=== PATIENT | male | born 1970 | race Caucasian/White ===

== ENCOUNTER 2019-12-21 13:13 | Outpatient (REF) | payer OTHER, SELFPAY | END 2019-12-21 13:14 | disposition home or self-care (01) | LOC: HO.HMGCLDS 13:13 | PROVIDERS: PCP Internal Medicine; Visit Provider Internal Medicine | DX: Z20.828 Contact with and (suspected) exposure to other viral communicable diseases (principal) | CPT/HCPCS: C9803; U0003 ==

== ENCOUNTER 2020-08-02 16:08 | Outpatient (REF) | payer OTHER, SELFPAY ==
--- NOTE | ~2020-08-02 | XR_ITS ---
EXAMINATION: XR FINGER, RIGHT CLINICAL INFORMATION: Low infection skin and subcutaneous tissue. COMPARISON: None TECHNIQUE: 3 views of the right second digit. FINDINGS: The bones and soft tissues are normal. No fracture. Alignment is anatomic. Joint spaces are maintained. XR/XR finger RT min 2V IMPRESSION: Normal second finger x-ray exam.
== END 2020-08-02 16:09 | disposition home or self-care (01) ==
LOC: HO.HMGCX 16:08
PROVIDERS: PCP Internal Medicine; Visit Provider Nurse Practitioner Family
DX: L08.9 Local infection of the skin and subcutaneous tissue, unspecified (principal)
CPT/HCPCS: 73140

== ENCOUNTER 2020-08-17 08:11 | Outpatient (REF) | payer OTHER, SELFPAY ==
[2020-08-17 08:59] LABS: MANUAL DIFF FLAG NO
[2020-08-17 09:10] LABS: Basophils Percent Auto 0.4 % (0-2); Eosinophils Absolute Auto 0.3 X10*3/uL (0.0-0.4); Eosinophils Percent Auto 4.5 % (0-4); Hematocrit 44.4 % (42-52); Hemoglobin 14.7 g/dl (14.0-18.0); Imm Gran Abs Auto 0.03 X10*3/uL (0.00-0.03); Imm Gran Pct Auto 0.4 % (0.0-0.4); Lymphocytes Percent Auto 29.8 % (20-40); Mean Corpuscular HGB Conc 33.1 g/dl (31.0-36.0); Mean Corpuscular Hemoglobin 29.9 pg (27.0-33.0); Mean Corpuscular Volume 90.2 fL (80-98); Mean Platelet Volume 9.8 fL (9.4-12.4); Monocytes Absolute Auto 0.7 X10*3/uL (0.1-1.2); Monocytes Percent Auto 9.7 % (2-11); Neutrophils Absolute Auto 3.7 X10*3/uL (2.0-8.3); Neutrophils Percent Auto 55.2 % (45-73); Platelet Count 273 X10*3/uL (160-400); Red Blood Count 4.92 X10*6/uL (4.60-5.80); Red Cell Distribution Width 13.1 % (11.0-16.0); White Blood Count 6.7 X10*3/uL (4.8-10.8)
[2020-08-17 09:33] LABS: Alanine Aminotransferase 27 U/L (0-40); Albumin Level 4.4 g/dL (3.5-5.0); Alkaline Phosphatase 52 U/L (39-117); Anion Gap 15 (12-20); Aspartate Amino Transferase 14 U/L (5-37); Bilirubin Total 0.4 mg/dL (0.0-1.0); Blood Urea Nitrogen 12 mg/dL (9-16); Calcium 9.4 mg/dL (8.4-10.2); Carbon Dioxide 21 mmol/L (22-29); Chloride 107 mmol/L (96-108); Cholesterol 173 mg/dL; Estimated Glomerular Filt Rate > 60; Glucose Fasting 98 mg/dL (60-99); HDL Cholesterol 54 mg/dL; LDL Cholesterol Calculated 102 mg/dl; Potassium 4.9 mmol/L (3.3-5.1); Sodium 138 mmol/L (135-145); Total Protein 6.8 g/dL (6.5-8.0); Triglycerides 86 mg/dL
== END 2020-08-17 08:12 | disposition home or self-care (01) ==
LOC: HO.LAB 08:11
PROVIDERS: PCP Internal Medicine; Visit Provider Internal Medicine
DX: Z00.00 Encounter for general adult medical examination without abnormal findings (principal); E11.9 Type 2 diabetes mellitus without complications
CPT/HCPCS: 36415; 80053; 80061; 85025

== ENCOUNTER 2020-10-24 09:36 | Outpatient (REF) | payer OTHER, SELFPAY ==
--- NOTE | 2020-10-24 09:39 | EMG_ITS ---
This is a 50-year-old man, who plays a guitar, has a 20-year history of left more than right upper extremity pain, numbness, and tingling in the hand. PHYSICAL EXAMINATION: On examination, he is alert and oriented with normal intellectual functions. Cranial nerves II through XII are normal. Muscle tone and strength are normal in all 4 extremities. Deep tendon reflexes symmetrical. No Tinel or Phalen sign. IMPRESSION: Rule out carpal tunnel syndrome. Nerve conduction EMG study: Normal electrodiagnostic study of both upper extremities with no evidence of carpal tunnel syndrome or nerve entrapment or generalized neuropathy. Normal EMG of C5-T1 innervated muscles. MD BELLA Green/HORTENSIA / [id number]
== END 2020-10-24 09:37 | disposition home or self-care (01) ==
LOC: HO.NEURO 09:36
PROVIDERS: Visit Provider Internal Medicine
DX: G56.00 Carpal tunnel syndrome, unspecified upper limb (principal)
CPT/HCPCS: 95885; 95913

== ENCOUNTER → 2021-03-28 09:00 | Outpatient (BNVA) | payer OTHER, SELFPAY | PROVIDERS: PCP Internal Medicine; Referring Provider Internal Medicine; Visit Provider Physician Assistant | DX: Z12.11 Encounter for screening for malignant neoplasm of colon (principal) | CPT/HCPCS: 99202 ==

== ENCOUNTER 2022-03-05 12:37 | Outpatient (REF) | payer OTHER, SELFPAY | END 2022-03-05 12:38 | disposition home or self-care (01) | LOC: HO.XRAY 12:37 | PROVIDERS: PCP Internal Medicine; Visit Provider Internal Medicine | DX: Z13.89 Encounter for screening for other disorder (principal) ==

== ENCOUNTER 2022-04-02 11:22 | Outpatient (REF) | payer OTHER, SELFPAY ==
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
== END 2022-04-02 11:23 | disposition home or self-care (01) ==
LOC: HO.HMGCX 11:22
PROVIDERS: Visit Provider Nurse Practitioner Family
DX: H11.31 Conjunctival hemorrhage, right eye (principal); S05.91XA Unspecified injury of right eye and orbit, initial encounter
CPT/HCPCS: 70150

== ENCOUNTER → 2022-09-29 08:59 | Outpatient (REF) | payer OTHER, SELFPAY | LOC: HO.SL 08:59 | PROVIDERS: PCP Internal Medicine; Visit Provider Internal Medicine | DX: G47.33 Obstructive sleep apnea (adult) (pediatric) (principal) | CPT/HCPCS: 95806 ==

== ENCOUNTER → 2022-09-29 09:31 | Outpatient (BNV) | payer OTHER, SELFPAY | PROVIDERS: PCP Internal Medicine; Visit Provider Internal Medicine | DX: G47.33 Obstructive sleep apnea (adult) (pediatric) (principal) | CPT/HCPCS: 95806 ==

== ENCOUNTER 2022-10-24 11:28 | Outpatient (AMB) | payer OTHER, SELFPAY ==
[2022-10-24 11:30] VITALS: BP 128/76; PULSE 80; BMI 35.9
--- NOTE | 2022-10-24 11:30 | A.OFFPC_ITS ---
Vital Signs 10/24/22 11:30 Height 5 ft 4 in Weight 209 lb BMI 35.9 BP 128/76 Blood Pressure Location Lt brachial Position Sitting Pulse 80 Pulse Source Pulse Oximeter Oxygen Delivery Method Room Air Intake Visit Reasons: F/u Sleep apnea Street Department Dispatcher: Not Required per policy Accompanied by: Self / Same As Patient Allergies amoxicillin Allergy (Unknown, Verified 10/24/22 11:30) makes his symptoms worse Sulfa (Sulfonamide Antibiotics) Allergy (Unknown, Verified 10/24/22 11:30) symptoms get worse Medication List - Last Reconciled 10/27/22 by Dean Hayden MD bisacodyl (Dulcolax (bisacodyl)) 10 mg (2 x 5 mg) PO ONCE 1 day bupropion HCl (Wellbutrin SR) 150 mg PO BID loratadine (Allergy Relief (loratadine)) 10 mg PO DAILY PRN polyethylene glycol 3350 (Miralax) 238 grams PO ONCE 1 day varenicline (Chantix Continuing Month Box) 1 mg PO BID Tobacco use date assessed: 04/07/22 Dental Screening Dental Screen Date: 10/24/22 Did you have a dental visit in the last 12 months?: Yes Did you have a dental problem in the last 6 months where you did not have access to dental care?: No Was dental information given to patient?: Patient has dentist HPI F/u Sleep apnea HPI Details has ROWENA and needs rx for cpap machine; already had one but needs replacement PFSH Surgical History Hx of colonoscopy History of vasectomy Family History Mother Mental health disorder Substance use disorder Father Mental health disorder Substance use disorder Social History Housing: Apartment Alcohol intake: current Patient Tobacco Use Status: Current everyday Tobacco user Tobacco use type: Cigarette Cigarettes Per Day: 10 e-Cigarette/Vaping Use: Never Used Second Hand Smoke Exposure: No service: No Current occupational status: employed Current occupation: [employer] Cognitive needs: No Hearing needs: No Vision needs: Yes Questionnaire PHQ-9 Over the last 2 weeks, how often have you been bothered by any of the following problems? 1. Little interest or pleasure in doing things: not at all 2. Feeling down, depressed, or hopeless: not at all 3. Trouble falling or staying asleep, or sleeping too much: not at all 4. Feeling tired or having little energy: not at all 5. Poor appetite or overeating: not at all 6. Feeling bad about yourself - or that you are a failure or have let yourself or your family down: not at all 7. Trouble concentrating on things, such as reading the newspaper or watching television: not at all 8. Moving or speaking so slowly that other people could have noticed. Or the opposite - being so fidgety or restless that you have been moving around a lot more than usual: not at all 9. Thoughts that you would be better off or of hurting yourself in some way: not at all Total score: 0 Depression Screening Interpretation: Negative 73154 - PHQ-9 Billing: Yes Source: Developed by Drs. Thuan Weller, Nancy Ellison, Constantin Waggoner and colleagues, with an educational ngozi from [employer]. Thrive Questionnaire Date Thrive assessed: 04/07/22 AUDIT C Alcohol Use Questionnaire (AUDIT-C) 1. How often do you have a drink containing alcohol?: 2-4 times a month 2. How many drinks containing alcohol do you have on a typical day when you are drinking?: 3 or 4 Total Score: 3 Score Reviewed/Action Taken: Yes DEANNA-7 AMB Questionnaire DEANNA-7 Date DEANNA - 7 assessed: 04/07/22 Source: Developed by Drs. Thuan Weller, Nancy Ellison, Constantin Waggoner and colleagues, with an educational ngozi from [employer]. Review of Systems Const Denies chills, Denies headache(s) and Denies weight loss ENT Denies headache(s) Card Denies chest pain, Denies syncope, Denies irregular heart rhythm and Denies dyspnea Resp Denies chest congestion, Denies cough and Denies dyspnea GI Denies abdominal pain, Denies change in stool character, Denies nausea and Denies vomiting Musc Denies deformity and Denies joint swelling Neuro Denies syncope and Denies headache(s) Physical exam (Primary Care) Vital Signs: Last Vital Signs Pulse 80 10/24/22 11:30 BP 128/76 10/24/22 11:30 Oxygen Delivery Method Room Air 10/24/22 11:30 BMI result Body Mass Index 35.9 Tobacco/Smoking Status: Tobacco use Status Tobacco use date assessed 04/07/22 10/24/22 11:34 Patient Tobacco Use Status Current everyday Tobacco 10/24/22 11:34 Tobacco use type Cigarette 10/24/22 11:34 e-Cigarette/Vaping Use Never Used 10/24/22 11:34 PHQ-9: PHQ-9 Score PHQ-9: Total score 0 10/24/22 11:34 Depression Screening Interpretation: Negative Thrive Assessment: Date of Thrive Assessment Date Thrive assessed 04/07/22 10/24/22 11:34 Const General: cooperative, comfortable, no acute distress and alert Neck Neck: Yes no lymphadenopathy Thyroid: Thyroid normal Resp Effort & Inspection: normal respiratory effort Auscultation: clear to auscultation bilaterally Percussion: percussion normal Cardio Jugular venous distension: no JVD Palpation: normal PMI Rate: regular rate Rhythm: regular rhythm Heart sounds: S1 normal heart sound present and S2 normal heart sound present GI Inspection: Yes normal to inspection Palpation (GI): No hepatosplenomegaly present Skin General skin exam: no rashes or lesions noted Extrem General: Yes no clubbing, cyanosis or edema Assessment and Plan Assessment & Plan (1) Obstructive sleep apnea: Code(s): G47.33 - Obstructive sleep apnea (adult) (pediatric) Plan: cont rx Orders: Orders Comprehensive [place]. Panel Fast 10/24/22 N28.9 - Disorder of kidney and ureter, unspecified Lipid Panel 10/24/22 E78.5 - Hyperlipidemia, unspecified Complete Blood Count Auto Diff 10/24/22 D64.9 - Anemia, unspecified Medications: New varenicline (Chantix Continuing Month Box) 1 mg PO BID 60 tabs 0RF Coding Level of Care Code Est Pt Level 3 (97391) Diagnoses Obstructive sleep apnea G47.33
== END 2022-10-24 13:16 | disposition home or self-care (01) ==
PROVIDERS: PCP Internal Medicine; Visit Provider Internal Medicine
DX: G47.33 Obstructive sleep apnea (adult) (pediatric) (principal)
CPT/HCPCS: 99213

== ENCOUNTER 2023-03-13 13:58 | Outpatient (AMB) | payer OTHER, SELFPAY ==
--- NOTE | 2023-03-13 14:00 | AM.OFFWIN_ITS ---
Intake Vital Signs 03/13/23 14:03 Height 5 ft 4 in Weight 98.43 kg BMI 37.2 BP 130/78 Blood Pressure Location Lt brachial Position Sitting Pulse 75 Pulse Source Pulse Oximeter Temp 97.6 F Temp Source Temporal Artery Scan Pulse Oximetry (%) 96 Oxygen Delivery Method Room Air Intake Visit Reasons: EP stitches rmv from 03/07/23 Intake Note: pt is here today for stitches removed from 03/07 Patient Tobacco Use Status: Former Tobacco user Allergies amoxicillin Allergy (Unknown, Verified 03/13/23 14:01) makes his symptoms worse Sulfa (Sulfonamide Antibiotics) Allergy (Unknown, Verified 03/13/23 14:01) symptoms get worse Do you need a note to return to daycare/school/sports/work: No HPI HPI Comments History of Present Illness Details 52-year-old male presents for suture rem oval of sutures on scalp patient had them placed at [facility] on March 07 after he bumped his head on a shelf. No complaints. Not on anti coags. No fevers, chills, numbness, tingling, headache, vision changes, dizziness or weakness. Physical exam with healing laceration to head with [address] Plan suture removal Educated patient on diagnosis and treatment plan, answered all question, patient verbalizes understanding. At this time patient will be discharged home, advised to return with new or worsening symptoms. Educated on worrisome signs and symptoms and when to return. At this time I feel comfortable discharge home. [facility] Surgical History Hx of colonoscopy History of vasectomy Family History Mother Mental health disorder Substance use disorder Father Mental health disorder Substance use disorder Social History Housing: Apartment Alcohol intake: current Patient Tobacco Use Status: Former Tobacco user Tobacco use type: Cigarette Cigarettes Per Day: 10 e-Cigarette/Vaping Use: Never Used Second Hand Smoke Exposure: No service: No Current occupational status: employed Current occupation: [employer] Cognitive needs: No Hearing needs: No Vision needs: Yes Review of Systems Const Details: Constitutional : No Fever, No Chills, Cardiovascular : No Chest Pain, No SOB Respiratory : No Dyspnea Gastrointestinal : No abdominal pain Musculoskeletal : No Joint Swelling Skin : No rash, positive skin laceration Neuro : No Weakness, No Numbness Psych : No SI/HI All systems reviewed & are unremarkable except as noted in HPI and below Physical Exam Vital Signs: vss Appearance: Alert.? Oriented X3.? No acute distress.? Head: Normocephalic, atraumatic, no step-offs or deformities + 3 cm healing laceration to scalp with a running suture in place Eyes: Pupils equal, round and reactive to light.? CVS: ? Pulses normal.? Respiratory: No respiratory distress.? Skin: Skin warm and dry.? Normal skin color.? Normal skin turgor.? Extremities: No lower extremity edema.? No calf ttp. 5/5 strength to bilateral upper and lower extremities Neuro: Oriented X 3.? No motor deficit.? No sensory deficit. CN 2-12 intact Assessment & Plan Assessment & Plan (1) Visit for suture removal: Code(s): Z48.02 - Encounter for removal of sutures Plan Take your medications as prescribed. If you were prescribed antibiotics today, it is important that you take your medication to their entirety, do not skip any doses, do not finish them early. Follow-up with your primary care provider this week. Return to the emergency department with new or worsening symptoms. Such as fevers, chills, chest pain, shortness of breath, nausea, vomiting, dizziness, headache, vision changes, lethargy In case of emergency call 911 Coding Level of Care Code Est Pt Level 3 (81000) Diagnoses Visit for suture removal Z48.02
[2023-03-13 14:03] VITALS: BP 130/78; PULSE 75; TEMP 36.4; O2SAT 96; BMI 37.2
== END 2023-03-13 14:45 | disposition home or self-care (01) ==
PROVIDERS: PCP Internal Medicine; Visit Provider Physician Assistant
DX: Z48.02 Encounter for removal of sutures (principal)
CPT/HCPCS: 15853; 99212

== ENCOUNTER 2023-08-24 08:46 | Outpatient (AMB) | payer OTHER, SELFPAY ==
[2023-08-24 08:49] VITALS: BP 140/80; PULSE 85; BMI 37.9
--- NOTE | 2023-08-24 08:49 | A.OFFPC_ITS ---
Vital Signs 08/24/23 08:49 Height 5 ft 4 in Weight 221 lb BMI 37.9 BP 140/80 H Blood Pressure Location Lt brachial Position Sitting Pulse 85 Pulse Source Pulse Oximeter Oxygen Delivery Method Room Air Intake Visit Reasons: Office visit Logistics Coordinator: Not Required per policy Accompanied by: Self / Same As Patient Allergies amoxicillin Allergy (Unknown, Verified 08/24/23 08:49) makes his symptoms worse Sulfa (Sulfonamide Antibiotics) Allergy (Unknown, Verified 08/24/23 08:49) symptoms get worse Medication List - Last Reconciled 08/24/23 by Dean Hayden MD bisacodyl (Dulcolax (bisacodyl)) 10 mg (2 x 5 mg) PO ONCE 1 day bupropion HCl SR (Wellbutrin SR) 150 mg PO BID CPAP (CPAP Machine/Device) AUTO PAP mode 6-16 setting loratadine (Allergy Relief (loratadine)) 10 mg PO DAILY PRN polyethylene glycol 3350 (Miralax) 238 grams PO ONCE 1 day varenicline (Chantix Continuing Month Box) 1 mg PO BID Tobacco use date assessed: 08/24/23 Dental Screening Dental Screen Date: 08/24/23 Did you have a dental visit in the last 12 months?: Yes Did you have a dental problem in the last 6 months where you did not have access to dental care?: No Was dental information given to patient?: Patient has dentist HPI Office visit HPI Details ROWENA; CPAP rx has and new one printed; has not started rx PFSH Surgical History Hx of colonoscopy History of vasectomy Family History Mother Mental health disorder Substance use disorder Father Mental health disorder Substance use disorder Social History Housing: Apartment Alcohol intake: current Patient Tobacco Use Status: Former Tobacco user Tobacco use type: Cigarette Cigarettes Per Day: 10 e-Cigarette/Vaping Use: Never Used Second Hand Smoke Exposure: No service: No Current occupational status: employed Current occupation: [employer] Cognitive needs: No Hearing needs: No Vision needs: Yes Questionnaire PHQ-9 Over the last 2 weeks, how often have you been bothered by any of the following problems? 1. Little interest or pleasure in doing things: not at all 2. Feeling down, depressed, or hopeless: not at all 3. Trouble falling or staying asleep, or sleeping too much: not at all 4. Feeling tired or having little energy: not at all 5. Poor appetite or overeating: not at all 6. Feeling bad about yourself - or that you are a failure or have let yourself or your family down: not at all 7. Trouble concentrating on things, such as reading the newspaper or watching t elevision: not at all 8. Moving or speaking so slowly that other people could have noticed. Or the opposite - being so fidgety or restless that you have been moving around a lot more than usual: not at all 9. Thoughts that you would be better off or of hurting yourself in some way: not at all Total score: 0 Depression Screening Interpretation: Negative Depression Screening Done: Yes [id number] - PHQ-9 Billing: Yes Source: Developed by Drs. Thuan Weller, Nancy Ellison, Constantin Waggoner and colleagues, with an educational ngozi from [employer]. Thrive Questionnaire Date Thrive assessed: 08/24/23 I am a: Patient What is your living situation today?: I have a steady place to live Within the past 12 months, did the food you bought not last and you didn't have the money to get more?: Never true Within the past 12 months, did you worry whether your food would run out before you got money to buy more?: Never true Do you have trouble paying for medicines?: No Do you have trouble getting transportation to medical appointments?: No Do you have trouble paying your heating and electricity bill?: No Do you have trouble taking care of your child, family member or friend?: No Do you have trouble with day-to-day activities such as bathing, preparing meals, shopping, managing finances, etc.?: No Are you currently unemployed and looking for a job?: No Are you interested in more education?: No Please select the resources that you would like help with: None THRIVE Score: 0 AUDIT C Alcohol Use Questionnaire (AUDIT-C) 1. How often do you have a drink containing alcohol?: 2-4 times a month 2. How many drinks containing alcohol do you have on a typical day when you are drinking?: 3 or 4 Total Score: 3 Score Reviewed/Action Taken: Yes DEANNA-7 AMB Questionnaire DEANNA-7 Date DEANNA - 7 assessed: 08/24/23 Feeling nervous, anxious, or on edge: 0 = Not at all Not being able to stop or control worryin = Not at all Worrying too much about different things: 0 = Not at all Trouble relaxin = Not at all Being so restless that it is hard to sit still: 0 = Not at all Becoming easily annoyed or irritable: 0 = Not at all Feeling afraid as if something awful might happen: 0 = Not at all Total DEANNA-7 score (0-4 normal; 5-9 mild; 10-14 moderate; 15-21 severe): 0 Source: Developed by Drs. Thuan Weller, Nancy Ellison, Constantin Waggoner and colleagues, with an educational ngozi from [employer]. Review of Systems Const Denies chills, Denies headache(s) and Denies weight loss ENT Denies headache(s) Card Denies chest pain, Denies syncope, Denies irregular heart rhythm and Denies dyspnea Resp Denies chest congestion, Denies cough and Denies dyspnea GI Denies abdominal pain, Denies change in stool character, Denies nausea and Denies vomiting Musc Denies deformity and Denies joint swelling Neuro Denies syncope and Denies headache(s) Physical exam (Primary Care) Vital Signs: Last Vital Signs Pulse 85 08/24/23 08:49 BP 140/80 H 08/24/23 08:49 Oxygen Delivery Method Room Air 08/24/23 08:49 BMI result Body Mass Index 37.9 Tobacco/Smoking Status: Tobacco use Status Tobacco use date assessed 08/24/23 08/24/23 08:50 Patient Tobacco Use Status Former Tobacco user 08/24/23 08:50 Tobacco use type Cigarette 08/24/23 08:50 e-Cigarette/Vaping Use Never Used 08/24/23 08:50 PHQ-9: PHQ-9 Score PHQ-9: Total score 0 08/24/23 08:50 Depression Screening Interpretation: Negative Thrive Assessment: Date of Thrive Assessment Date Thrive assessed 07/08/24 07/08/24 08:50 Const General: cooperative, comfortable, no acute distress and alert Neck Neck: Yes no lymphadenopathy Thyroid: Thyroid normal Resp Effort & Inspection: normal respiratory effort Auscultation: clear to auscultation bilaterally Percussion: percussion normal Cardio Jugular venous distension: no JVD Palpation: normal PMI Rate: regular rate Rhythm: regular rhythm Heart sounds: S1 normal heart sound present and S2 normal heart sound present GI Inspection: Yes normal to inspection Palpation (GI): No hepatosplenomegaly present Skin General skin exam: no rashes or lesions noted Extrem General: Yes no clubbing, cyanosis or edema Assessment and Plan Assessment & Plan (1) Obstructive sleep apnea: Code(s): G47.33 - Obstructive sleep apnea (adult) (pediatric) Plan: start CPAP as ordered Orders: Orders Lipid Panel Today Z13.220 - Encounter for screening for lipoid disorders Complete Blood Count Auto Diff Today Z13.0 - Encounter for screening for diseases of the blood and blood-forming organs and certain disorders involving the immune mechanism Comprehensive [place]. Panel Fast Today Z13.9 - Encounter for screening, unspecified Thyroid Stimulating Hormone Today Z13.29 - Encounter for screening for other suspected endocrine disorder Medications: Refilled CPAP (CPAP Machine/Device) AUTO PAP mode 6-16 setting 1 ea 0RF G47.33 - O bstructive sleep apnea (adult) (pediatric) Coding Level of Care Code Est Pt Level 3 (61764) Diagnoses Obstructive sleep apnea G47.33
== END 2023-08-24 09:07 | disposition home or self-care (01) ==
PROVIDERS: PCP Internal Medicine; Visit Provider Internal Medicine
DX: G47.33 Obstructive sleep apnea (adult) (pediatric) (principal)
CPT/HCPCS: 99213

== ENCOUNTER 2024-04-05 13:42 | Outpatient (AMB) | payer OTHER, SELFPAY ==
[2024-04-05 13:44] VITALS: BP 136/80; PULSE 92; O2SAT 96; BMI 37.4
--- NOTE | 2024-04-05 13:44 | MHC.PC.OV ---
Vital Signs 04/05/24 13:44 Height 5 ft 4 in Weight 218 lb BMI 37.4 BP 136/80 Blood Pressure Location Lt brachial Position Sitting Pulse 92 Pulse Source Pulse Oximeter Pulse Oximetry (%) 96 Oxygen Delivery Method Room Air Intake Visit Reasons: Annual Exam Natural Resources Engineer Required: No Accompanied by: Self / Same As Patient Allergies amoxicillin Allergy (Unknown, Verified 04/05/24 13:45) makes his symptoms worse Sulfa (Sulfonamide Antibiotics) Allergy (Unknown, Verified 04/05/24 13:45) symptoms get worse Medication List - Last Reconciled 04/05/24 by Dean Hayden MD bisacodyl (Dulcolax (bisacodyl)) 10 mg (2 x 5 mg) PO ONCE 1 day bupropion HCl SR (Wellbutrin SR) 150 mg PO BID CPAP (CPAP Machine/Device) AUTO PAP mode 6-16 setting loratadine (Allergy Relief (loratadine)) 10 mg PO DAILY PRN polyethylene glycol 3350 (Miralax) 238 grams PO ONCE 1 day varenicline tartrate (Chantix Continuing Month Box) 1 mg PO BID Tobacco use date assessed: 04/05/24 Dental Screening Dental Screen Date: 04/05/24 Did you have a dental visit in the last 12 months?: Yes Did you have a dental problem in the last 6 months where you did not have access to dental care?: No Was dental information given to patient?: Patient has dentist HPI Annual Exam HPI Details ROWENA but not using cpap machine; PFSH Surgical History Hx of colonoscopy History of vasectomy Family History Mother Mental health disorder Substance use disorder Father Mental health disorder Substance use disorder Social History Housing: Apartment Alcohol intake: current Patient Tobacco Use Status: Former Tobacco user Tobacco use type: Cigarette Cigarettes Per Day: 10 e-Cigarette/Vaping Use: Never Used Second Hand Smoke Exposure: No service: No Current occupational status: employed Current occupation: [employer] Cognitive needs: No Hearing needs: No Vision needs: Yes Questionnaire PHQ-9 Over the last 2 weeks, how often have you been bothered by any of the following problems? 1. Little interest or pleasure in doing things: several days 2. Feeling down, depressed, or hopeless: several days 3. Trouble falling or staying asleep, or sleeping too much: several days 4. Feeling tired or having little energy: several days 5. Poor appetite or overeating: several days 6. Feeling bad about yourself - or that you are a failure or have let yourself or your family down: not at all 7. Trouble concentrating on things, such as reading the newspaper or watching television: several days 8. Moving or speaking so slowly that other people could have noticed. Or the opposite - being so fidgety or restless that you have been moving around a lot more than usual: not at all 9. Thoughts that you would be better off or of hurting yourself in some way: not at all Total score: 6 Depression Screening Interpretation: Positive Depression Screening Done: Yes 76700 - PHQ-9 Billing: Yes Source: Developed by Drs. Thuan Weller, Nancy Ellison, Constatnin Waggoner and colleagues, with an educational ngozi from [employer]. Thrive Questionnaire Date Thrive assessed: 04/05/24 I am a: Patient What is your living situation today?: I have a steady place to live Within the past 12 months, did the food you bought not last and you didn't have the money to get more?: I choose not to answer this question Within the past 12 months, did you worry whether your food would run out before you got money to buy more?: Never true Do you have trouble paying for medicines?: No Do you have trouble getting transportation to medical appointments?: No Do you have trouble paying your heating and electricity bill?: Yes Do you have trouble taking care of your child, family member or friend?: No Do you have trouble with day-to-day activities such as bathing, preparing meals, shopping, managing finances, etc.?: No Are you currently unemployed and looking for a job?: No Are you interested in more education?: No Please select the resources that you would like help with: None Currently or been in a relationship where the following occur: I choose not to answer THRIVE Score: 1 AUDIT C Alcohol Use Questionnaire (AUDIT-C) 1. How often do you have a drink containing alcohol?: 2-3 times a week 2. How many drinks containing alcohol do you have on a typical day when you are drinking?: 3 or 4 3. How often do you have six or more drinks on one occasion?: Never Total Score: 4 DEANNA-7 AMB Questionnaire DEANNA-7 Date DEANNA - 7 assessed: 04/05/24 Feeling nervous, anxious, or on edge: 1 = Several days Not being able to stop or control worryin = Not at all Worrying too much about different things: 0 = Not at all Trouble relaxin = Not at all Being so restless that it is hard to sit still: 0 = Not at all Becoming easily annoyed or irritable: 0 = Not at all Feeling afraid as if something awful might happen: 0 = Not at all Total DEANNA-7 score (0-4 normal; 5-9 mild; 10-14 moderate; 15-21 severe): 1 Source: Developed by Drs. Thuan Weller, Nancy Ellison, Constantin Waggoner and colleagues, with an educational ngozi from [employer]. DEANNA-7 Assessment Billing DEANNA-7 Assessment Tool: DEANNA-7 Assessment 94473 Review of Systems Const Denies chills, Denies fatigue, Denies headache(s) and Denies weight loss Eyes Denies change in vision, Denies diplopia and Denies eye pain ENT Denies vertigo, Denies dizziness, Denies headache(s) and Denies nasal discharge Card Denies chest pain, Denies rapid heart rate and Denies dyspnea on exertion Resp Denies chest congestion, Denies cough, Denies pain with cough and Denies dyspnea on exertion GI Denies abdominal pain, Denies hematochezia and Denies change in bowel habits Musc Denies myalgias, Denies arthralgias and Denies joint swelling Skin/Breast Denies lesions and Denies unusual bruising Neuro Denies vertigo, Denies dizziness, Denies headache(s) and Denies focal weakness Endo Denies fatigue Physical exam (Primary Care) Vital Signs: Last Vital Signs Pulse 92 04/05/24 13:44 BP 136/80 04/05/24 13:44 Pulse Ox 96 04/05/24 13:44 Oxygen Delivery Method Room Air 04/05/24 13:44 BMI result Body Mass Index 37.4 Tobacco/Smoking Status: Tobacco use Status Tobacco use date assessed 04/05/24 04/05/24 13:48 Patient Tobacco Use Status Former Tobacco user 04/05/24 13:48 Tobacco use type Cigarette 04/05/24 13:48 e-Cigarette/Vaping Use Never Used 04/05/24 13:48 PHQ-9: PHQ-9 Score PHQ-9: Total score 6 04/05/24 13:48 Depression Screening Interpretation: Positive Thrive Assessment: Date of Thrive Assessment Date Thrive assessed 04/05/24 04/05/24 13:48 Currently or been in a relationship where the following occur: I choose not to answer Const General: cooperative, healthy appearing and no acute distress Orientation/consciousness: oriented to person, oriented to place and oriented to time HENMT Head: Yes normal to inspection, Yes normocephalic and Yes atraumatic Mouth: Normal oral and palatal mucosa present and tongue normal Throat: Yes posterior oropharynx normal and Yes uvula midline Eyes General: appearance normal, both eyes and all related structures Neck Neck: Yes normal visual inspection, Yes full ROM and Yes no lymphadenopathy Thyroid: Thyroid normal Carotids: normal carotid upstroke Chest Chest palpation & inspection: normal inspection of the chest Resp Effort & Inspection: normal respiratory effort and able to speak in complete sentences Auscultation: clear to auscultation bilaterally Cardio Jugular venous distension: no JVD Palpation: normal PMI Rate: regular rate Rhythm: regular rhythm Heart sounds: S1 normal heart sound present and S2 normal heart sound present GI Inspection: Yes normal to inspection Palpation (GI): Soft to palpation and No hepatosplenomegaly present Auscultation: normal bowel sounds General: Yes no CVA tenderness Back/Spine/Pelvis Back: no CVA tenderness Skin General skin exam: no rashes or lesions noted Neuro General: oriented to person, oriented to place and oriented to time Extrem General: Yes normal to inspection and Yes full ROM Coding Level of Care Code Est Pt Prev Care 40-64y(35804) Diagnoses Physical exam Z00.00 Obstructive sleep apnea G47.33 Additional Codes DEANNA-7 Assessment Billing - DEANNA-7 Assessment Tool: DEANNA-7 Assessment 09568 ([id number]) PHQ-9 - 76970 - PHQ-9 Billing: Yes ([id number]) Assessment & Plan Assessment & Plan (1) Physical exam: Code(s): Z00.00 - Encounter for general adult medical examination without abnormal findings Category: Medical Plan: stable; do labs (2) Obstructive sleep apnea: Code(s): G47.33 - Obstructive sleep apnea (adult) (pediatric) Category: Medical Plan: new rx for cpcp Orders: Referrals Gastroenterology Referral Z12.11 - Encounter for screening for malignant neoplasm of colon Medications: Refilled CPAP (CPAP Machine/Device) AUTO PAP mode 6-16 setting 1 ea 0RF G47.33 - Obstructive sleep apnea (adult) (pediatric) loratadine (Allergy Relief (loratadine)) 10 mg PO DAILY PRN 60 tabs 0RF allergy symptoms
--- OUTSIDE RECORDS SUMMARY | 2024-04-05 14:40 | XMS_ITS | Clinical Summary ---
Author Organization [facility] Address [address] [place] [address] Care Team Providers Care Procurement Representative Name Role Phone Unavailable Primary Care Provider Unavailabl e Social History Tobacco Use Types Packs/Day Years Used Date Smoking Tobacco: Never Assessed Sex and Gender Information Value Date Recorded Sex Assigned at Not on file Gender Identity Not on file Sexual Orientation Not on file Plan of Treatment Health Maintenance Due Date Last Done Comments Hepatitis C Virus Screening 1969 HIV Screening 1982 DTaP/Tdap/Td Vaccines (1 - Tdap) 1988 Hepatitis B Vaccines (1 of 3 - 19+ 3-dose series) 1988 Pneumococcal Vaccines 50+ (1 of 1 - PCV) 10/08/2019 Zoster (Shingles) Vaccine (1 of 2) 10/08/2019 COVID-19 Vaccine ( - 2023-2 5 season) 2023 Pneumococcal Vaccine: Pediat raymundo (0-5 Years) and At-Risk Patients (6 to 49 Years) Aged Out No longer eligible b ased on patient's age to complete this topic
--- OUTSIDE RECORDS SUMMARY | 2024-04-05 14:40 | XMS_ITS | Clinical Summary ---
Author Organization [facility] Address [address] [place] [address] Care Team Providers Care Mold Sheet Cleaner Name Role Phone Brett Suarez MD Primary Care Provider Brett Jones MD Unavailable Unavailable Allergies Active Allergy Reactions Criticality Noted Date Comments Sulfa Antibiotics 08/24/2016 Medications PARoxetine HCl (Paxil) 40 MG tablet 0 08/24/2016 Active Penicillin V Potassium (VEETID) 500 MG tablet TAKE 1 TABLET 4 TIMES DAILY UNTIL GONE. 40 0 08/24/2016 Active Active Problems Problem Noted Date Diagnosed Date Dental caries 08/24/2016 Social History Tobacco Use Types Packs/Day Years Used Date Smoking Tobacco: Never Assessed Sex and Gender Information Value Date Recorded Sex Assigned at Not on file Legal Sex Male 9:01 PM EDT Gender Identity Not on file Sexual Orientation Not on file Last Filed Vital Signs Vital Sign Reading Time Taken Comments Blood Pressure 122/70 08/24/2016 1:46 PM EDT Pulse 94 08/24/2016 1:46 PM EDT Temperature 36.7 ??C (98.1 ??F) 08/24/2016 1:46 PM ED T Respiratory Rate 16 08/24/2016 1:46 PM EDT Oxygen Saturation 98% 08/24/2016 1:46 PM EDT Inhaled Oxygen Concentration - - Weight 80.7 kg (178 lb) 08/24/2016 1:46 PM EDT Height 167.6 cm (5' 6 ) 08/24/2016 1:46 PM EDT Body Mass Index 28.73 08/24/2016 1:46 PM EDT Plan of Treatment Health Maintenance Due Date Last Done Comments Hepatitis C Screening 1970 DTaP/Tdap/Td (1 - Tdap) 10/08/1987 Hep B (1 of 3 - 19+ 3-dose series) 1988 Pneumococcal 50+ years (1 of 1 - PCV) 10/08/2019 Zoster (Shingrix) (1 of 2) 10/08/2019 COVID-19 Vaccine (2023-2 5 season) 2023 Influenza (#1) 2023 HPV Vaccine Aged Out No longer eligi ble based on patient's age to complete this topic Hep A Aged Out No longer eligi ble based on patient's age to complete this topic Hib Aged Out No longer eligi ble based on patient's age to complete this topic Meningococcal ACWY Aged Out No longer eligible based on patient's age to complete this topic Care Teams Mold Sheet Cleaner Relationship Specialty Start Date End Date Brett Suarez MD PCP - General 09/22/22 Brett Suarez MD PCP - Backup PCP 03/19/23
== END 2024-04-05 14:23 | disposition home or self-care (01) ==
PROVIDERS: PCP Internal Medicine; Visit Provider Internal Medicine
DX: Z00.00 Encounter for general adult medical examination without abnormal findings (principal); G47.33 Obstructive sleep apnea (adult) (pediatric)

== ENCOUNTER → 2024-04-05 13:42 | Outpatient (BNVA) | payer OTHER, SELFPAY | PROVIDERS: PCP Internal Medicine; Visit Provider Internal Medicine | DX: Z00.00 Encounter for general adult medical examination without abnormal findings (principal); G47.33 Obstructive sleep apnea (adult) (pediatric) | CPT/HCPCS: 96127; 99396 ==

== ENCOUNTER 2024-06-07 10:04 | Outpatient (REF) | payer OTHER, SELFPAY ==
[2024-06-07 10:17] LABS: MANUAL DIFF FLAG NO
[2024-06-07 11:19] LABS: Basophils Absolute Auto 0.1 X10*3/uL (0.0-0.2); Eosinophils Absolute Auto 0.4 X10*3/uL (0.0-0.4); Eosinophils Percent Auto 5.8 % (0-4); Hematocrit 44.8 % (42.0-52.0); Hemoglobin 15.4 g/dl (14.0-18.0); Imm Gran Abs Auto 0.05 X10*3/uL (0.00-0.03); Imm Gran Pct Auto 0.7 % (0.0-0.4); Lymphocytes Absolute Auto 1.6 X10*3/uL (1.2-4.9); Lymphocytes Percent Auto 23.8 % (20-40); Mean Corpuscular HGB Conc 34.4 g/dl (31.0-36.0); Mean Corpuscular Hemoglobin 31.6 pg (27.0-33.0); Mean Corpuscular Volume 91.8 fL (80.0-98.0); Mean Platelet Volume 10.3 fL (9.4-12.4); Monocytes Absolute Auto 0.5 X10*3/uL (0.1-1.2); Neutrophils Absolute Auto 4.1 x10*3/uL (2.0-8.3); Neutrophils Percent Auto 61.7 % (45-73); Platelet Count 289 X10*3/uL (160-400); Red Blood Count 4.88 X10*6/uL (4.60-5.80); Red Cell Distribution Width 13.5 % (11.0-16.0); White Blood Count 6.7 X10*3/uL (4.8-10.8)
--- OUTSIDE RECORDS SUMMARY | 2024-06-07 11:28 | XMS_ITS | Clinical Summary ---
Author Organization [facility] Address [address] [place] [address] Care Team Providers Care Hand Bender Name Role Phone Unavailable Primary Care Provider Unavailabl e Social History Tobacco Use Types Packs/Day Years Used Date Smoking Tobacco: Never Assessed Sex and Gender Information Value Date Recorded Sex Assigned at Not on file Legal Sex Male 4:31 PM EDT Gender Identity Not on file [...]
[2024-06-07 12:27] LABS: Alanine Aminotransferase 38 U/L (0-40); Albumin Level 4.5 g/dL (3.5-5.0); Alkaline Phosphatase 62 U/L (39-117); Anion Gap 13 (12-20); Aspartate Amino Transferase 23 U/L (5-37); Bilirubin Total 0.3 mg/dL (0.0-1.0); Blood Urea Nitrogen 9 mg/dL (9-16); Carbon Dioxide 24 mmol/L (22-29); Chloride 105 mmol/L (96-108); Cholesterol 166 mg/dL (<200); Estimated Glomerular Filt Rate > 60; Glucose Fasting 93 mg/dL (60-99); HDL Cholesterol 46 mg/dL (>40); LDL Cholesterol Calculated 97 mg/dL (<100); Potassium 4.5 mmol/L (3.3-5.1); Sodium 137 mmol/L (135-145); Thyroid Stimulating Hormone 0.89 uIU/mL (0.32-4.0); Total Protein 7.1 g/dL (6.5-8.0); Triglycerides 118 mg/dL (<150)
== END 2024-06-07 10:05 | disposition home or self-care (01) ==
LOC: HO.LAB 10:04
PROVIDERS: PCP Internal Medicine; Visit Provider Internal Medicine
DX: Z13.0 Encounter for screening for diseases of the blood and blood-forming organs and certain disorders involving the immune mechanism (principal); Z13.220 Encounter for screening for lipoid disorders; Z13.29 Encounter for screening for other suspected endocrine disorder
CPT/HCPCS: 36415; 80053; 80061; 84443; 85025

== ENCOUNTER 2024-06-22 15:48 | Outpatient (AMB) | payer OTHER, SELFPAY ==
[2024-06-22 15:50] VITALS: BP 124/82; PULSE 97; O2SAT 98; BMI 36.6
--- NOTE | 2024-06-22 15:50 | MHC.PC.OV ---
Vital Signs 06/22/24 15:50 Height 5 ft 4 in Weight 213 lb 8 oz BMI 36.6 BP 124/82 Blood Pressure Location Lt brachial Position Sitting Pulse 97 Pulse Source Pulse Oximeter Pulse Oximetry (%) 98 Oxygen Delivery Method Room Air Intake Visit Reasons: VEDA from [facility]/med request Scaffold Builder Required: No Accompanied by: Self / Same As Patient Allergies amoxicillin Allergy (Unknown, Verified 06/22/24 16:13) makes his symptoms worse Sulfa (Sulfonamide Antibiotics) Allergy (Unknown, Verified 06/22/24 16:13) symptoms get worse Medication List - Last Reconciled 06/22/24 by Kieran Anderson MD bisacodyl (Dulcolax (bisacodyl)) 10 mg (2 x 5 mg) PO ONCE 1 day bupropion HCl SR (Wellbutrin SR) 150 mg PO BID CPAP (CPAP Machine/Device) AUTO PAP mode 6-16 setting loratadine (Allergy Relief (loratadine)) 10 mg PO DAILY PRN methylphenidate HCl ER (Concerta) 18 mg PO QAM PRN polyethylene glycol 3350 (Miralax) 238 grams PO ONCE 1 day Tobacco use date assessed: 06/22/24 Dental Screening Dental Screen Date: 06/22/24 Did you have a dental visit in the last 12 months?: Yes Did you have a dental problem in the last 6 months where you did not have access to dental care?: No Was dental information given to patient?: Patient has dentist HPI VED[facility] from [facility]/med request HPI Details Patient comes in today for his follow-up visit - is transferring care from Dr. Hayden, who retired from the practice a couple of months Patient states that he currently feels okay Relates that he had a home sleep study done in September 2022 that was POSITIVE for sleep apnea but patient states that he still has not gotten his CPAP device even though it has been over a year now since he was diagnosed Thinks that his insurance is requiring an office note from Sleep Medicine about his diagnosis and he is not really sure what is still holding up his CPAP being approved He denies any headaches or dizziness Denies any chest pains, no increased SOB No nausea/vomiting, no abdominal pain No change in bowel habits noted He would also like to get a prescription for Sildenafil if possible for his ED symptoms States that he had his follow up labs done last month - to discuss his results Patient also states that he is now overdue for his repeat screening colonoscopy, which he had done many years ago in the past [facility] Medical History (Updated 06/26/24 @ 21:37 by Kieran Anderson MD) Obesity (BMI 30-39.9) Erectile dysfunction Depression Allergic rhinitis Attention deficit disorder (ADD) Surgical History Hx of colonoscopy History of vasectomy Family History Mother Mental health disorder Substance use disorder Father Mental health disorder Substance use disorder Social History Housing: Apartment Alcohol intake: current Patient Tobacco Use Status: Former Tobacco user Tobacco use type: Cigarette Cigarettes Per Day: 10 e-Cigarette/Vaping Use: Never Used Second Hand Smoke Exposure: No service: No Current occupational status: employed Current occupation: [employer] Cognitive needs: No Hearing needs: No Vision needs: Yes Questionnaire PHQ-9 Over the last 2 weeks, how often have you been bothered by any of the following problems? 1. Little interest or pleasure in doing things: several days 2. Feeling down, depressed, or hopeless: several days 3. Trouble falling or staying asleep, or sleeping too much: several days 4. Feeling tired or having little energy: several days 5. Poor appetite or overeating: several days 6. Feeling bad about yourself - or that you are a failure or have let yourself or your family down: not at all 7. Trouble concentrating on things, such as reading the newspaper or watching television: several days 8. Moving or speaking so slowly that other people could have noticed. Or the opposite - being so fidgety or restless that you have been moving around a lot more than usual: not at all 9. Thoughts that you would be better off or of hurting yourself in some way: not at all Total score: 6 Depression Screening Interpretation: Positive Depression Screening Follow-up: Existing condition and In treatment Depression Screening Done: Yes 74787 - PHQ-9 Billing: Yes Source: Developed by Drs. Thuan Weller, Nancy B.WConstantin Rolle and colleagues, with an educational ngozi from [employer]. Thrive Questionnaire Date Thrive assessed: 06/22/24 I am a: Patient What is your living situation today?: I have a steady place to live Within the past 12 months, did the food you bought not last and you didn't have the money to get more?: I choose not to answer this question Within the past 12 months, did you worry whether your food would run out before you got money to buy more?: Never true Do you have trouble paying for medicines?: No Do you have trouble getting transportation to medical appointments?: No Do you have trouble paying your heating and electricity bill?: Yes Do you have trouble taking care of your child, family member or friend?: No Do you have trouble with day-to-day activities such as bathing, preparing meals, shopping, managing finances, etc.?: No Are you currently unemployed and looking for a job?: No Are you interested in more education?: No Please select the resources that you would like help with: None Currently or been in a relationship where the following occur: I choose not to answer THRIVE Score: 1 AUDIT C Alcohol Use Questionnaire (AUDIT-C) 1. How often do you have a drink containing alcohol?: 2-3 times a week 2. How many drinks containing alcohol do you have on a typical day when you are drinking?: 3 or 4 3. How often do you have six or more drinks on one occasion?: Never Total Score: 4 Score Reviewed/Action Taken: Yes DEANNA-7 AMB Questionnaire DEANNA-7 Date DEANNA - 7 assessed: 06/22/24 Feeling nervous, anxious, or on edge: 1 = Several days Not being able to stop or control worryin = Not at all Worrying too much about different things: 0 = Not at all Trouble relaxin = Not at all Being so restless that it is hard to sit still: 0 = Not at all Becoming easily annoyed or irritable: 0 = Not at all Feeling afraid as if something awful might happen: 0 = Not at all Total DEANNA-7 score (0-4 normal; 5-9 mild; 10-14 moderate; 15-21 severe): 1 Source: Developed by Drs. Thuan Weller, Constantin Karimi and colleagues, with an educational ngozi from [employer]. DEANNA-7 Assessment Billing DEANNA-7 Assessment Tool: DEANNA-7 Assessment 67050 Review of Systems Const Denies chills, Reports daytime sleepiness, Denies fatigue, Denies fever(s) and Denies headache(s) ENT Denies dysphagia, Denies dizziness, Denies otalgia, Denies headache(s), Denies neck pain, Denies odynophagia and Denies sore throat Card Denies chest pain, Denies palpitations and Denies dyspnea Resp Denies chest congestion, Denies cough and Denies dyspnea GI Denies abdominal pain, Denies constipation, Denies dysphagia, Denies heartburn, Denies diarrhea, Denies nausea, Denies odynophagia and Denies vomiting Denies difficulty urinating, Reports erectile dysfunction, Denies dysuria, Denies nocturia and Denies urinary frequency Musc Reports back pain (over the lower back, on and off) and Denies neck pain Skin/Breast Denies rash Neuro Denies dizziness and Denies headache(s) Endo Denies fatigue and Denies palpitations Mahad/Lymph Denies easy bruising Physical exam (Primary Care) Vital Signs: Last Vital Signs Pulse 97 06/22/24 15:50 BP 124/82 06/22/24 15:50 Pulse Ox 98 06/22/24 15:50 Oxygen Delivery Method Room Air 06/22/24 15:50 BMI result Body Mass Index 36.6 Tobacco/Smoking Status: Tobacco use Status Tobacco use date assessed 06/22/24 06/22/24 15:58 Patient Tobacco Use Status Former Tobacco user 06/22/24 15:58 Tobacco use type Cigarette 06/22/24 15:58 e-Cigarette/Vaping Use Never Used 06/22/24 15:58 PHQ-9: PHQ-9 Score PHQ-9: Total score 6 06/22/24 16:15 Depression Screening Interpretation: Positive Depression Screening Follow-up: Existing condition and In treatment Thrive Assessment: Date of Thrive Assessment Date Thrive assessed 06/22/24 06/22/24 15:58 Currently or been in a relationship where the following occur: I choose not to answer Const General: no acute distress and alert HENMT Ears: TM's normal bilaterally and EAC's normal Throat: Yes posterior oropharynx normal and Yes tonsils normal (no TP congestion) Neck Neck: Yes supple and No lymphadenopathy Thyroid: Thyroid normal Resp Auscultation: clear to auscultation bilaterally, no rales and no wheezes Cardio Rate: regular rate Rhythm: regular rhythm Heart sounds: no murmurs GI Palpation (GI): Soft to palpation and nontender Auscultation: normal bowel sounds General: Yes no CVA tenderness Back/Spine/Pelvis Back: no CVA tenderness Thoracic/Lumbar Spine: lumbar spinal tenderness Skin Rashes: no rashes Extrem General: Yes no clubbing, cyanosis or edema Results Reviewed Results Reviewed: Laboratory Tests 06/07/24 10:14 WBC 6.7 Hgb 15.4 Hct 44.8 Plt Count 289 Sodium 137 Potassium 4.5 Creatinine 0.83 Estimated GFR > 60 Fasting Glucose 93 Calcium 9.0 AST 23 ALT 38 Triglycerides 118 Cholesterol 166 LDL Cholesterol, Calc 97 HDL Cholesterol 46 TSH 0.89 Coding Level of Care Code Est Pt Level 4 (03200) Complex EM visit Add On G2211 Diagnoses Obstructive sleep apnea G47.33 Allergic rhinitis, unspecified seasonality, unspecified trigger J30.9 Allergic rhinitis trigger: unspecified Allergic rhinitis seasonality: unspecified Erectile dysfunction, unspecified erectile dysfunction type N52.9 Erectile dysfunction type: unspecified Attention or concentration deficit R41.840 Attention deficit type: attention or concentration deficit Episode of recurrent major depressive disorder, unspecified depression episode severity F33.9 Depression Type: major depressive disorder Major depression recurrence: recurrent Active/Remission status: currently active Major depression episode severity: unspecified Obesity (BMI 30-39.9) E66.9 Colon cancer screening Z12.11 Additional Codes DEANNA-7 Assessment Billing - DEANNA-7 Assessment Tool: DEANNA-7 Assessment 63830 ([id number]) PHQ-9 - 54976 - PHQ-9 Billing: Yes ([id number]) Assessment & Plan Assessment & Plan (1) Obstructive sleep apnea: Code(s): G47.33 - Obstructive sleep apnea (adult) (pediatric) Category: Medical Plan: Patient reportedly tested positive for ROWENA on a home sleep study done back in September 2022 but he cannot understand why after over a year that his insurance still has not provided him with a CPAP device yet to help correct his sleep apnea He was supposedly recently advised that a letter from Sleep Medicine certifying that he does have ROWENA is required? Will go ahead and refer him back to Sleep Medicine so they can help him get this issue sorted out (2) Allergic rhinitis: Code(s): J30.9 - Allergic rhinitis, unspecified Category: Medical Qualifiers: Allergic rhinitis trigger: unspecified Allergic rhinitis seasonality: unspecified Qualified Code(s): J30.9 - Allergic rhinitis, unspecified Plan: Continue Loratadine 10 mg QD PRN Results of patient's labs done last month reviewed and discussed with patient (3) Erectile dysfunction: Code(s): N52.9 - Male erectile dysfunction, unspecified Category: Medical Qualifiers: Erectile dysfunction type: unspecified Qualified Code(s): N52.9 - Male erectile dysfunction, unspecified Plan: Per request, will start him on a trial of Sildenafil 50 mg PRN (4) Attention deficit disorder (ADD): Comment: follows up with psychiatry Code(s): F98.8 - Other specified behavioral and emotional disorders with onset usually occurring in childhood and adolescence Category: Medical Qualifiers: Attention deficit type: attention or concentration deficit Qualified Code(s): R41.840 - Attention and concentration deficit Plan: Continue Concerta 18 mg Q AM PRN Follow up with psychiatry as scheduled (5) Depression: Code(s): F32.A - Depression, unspecified Category: Medical Qualifiers: Depression Type: major depressive disorder Major depression recurrence: recurrent Active/Remission status: currently active Major depression episode severity: unspecified Qualified Code(s): F33.9 - Major depressive disorder, recurrent, unspecified Plan: Continue Bupropion SR 150 mg BID Follow up with psychiatry as scheduled (6) Obesity (BMI 30-39.9): Code(s): E66.9 - Obesity, unspecified Category: Medical Plan: Reinforced diet/exercise as tolerated/lose weight (7) Colon cancer screening: Code(s): Z12.11 - Encounter for screening for malignant neoplasm of colon Category: Medical Plan: Patient states that he is now overdue for his repeat colonoscopy Will refer him to GI for repeat colonoscopy Plan Follow up in 3 months Orders: Referrals Gastroenterology Referral Z12.11 - Encounter for screening for malignant neoplasm of colon Sleep Medicine Referral G47.33 - Obstructive sleep apnea (adult) (pediatric) Medications: New sildenafil administer 30 minutes to 4 hours before activity 50 mg PO DAILY PRN 10 tabs 2RF sexual activity
--- OUTSIDE RECORDS SUMMARY | 2024-06-22 16:27 | XMS_ITS | Clinical Summary ---
Author Organization [facility] Address [address] [place] [address] Care Team Providers Care Docket Specialist Name Role Phone Brett Suarez MD Primary [...] COVID-19 Vaccine (2023-2 5 season) 2023 Influenza (Season Ended) 2024 HPV Vaccine Aged Out No longer eligi [...] age to complete this topic Care Teams Docket Specialist Relationship Specialty Start Date End Date Brett Suarez MD PCP - General 09/22/22 Brett Suarez MD PCP - Backup PCP 03/19/23
--- OUTSIDE RECORDS SUMMARY | 2024-06-22 16:27 | XMS_ITS | Clinical Summary ---
Author Organization [facility] Address [address] [place] [address] Care Team Providers Care Mounter Hand Name Role Phone Unavailable Primary Care Provider [...] (1 of 3 - 19+ 3-dose series) 09/17 Pneumococcal Vaccines 50+ (1 of 1 - PCV) 10/08/2019 Zoster (Shingles) Vaccine (1 of 2) 10/08/2019 COVID-19 Vaccine (1 - 2023- season) 2023
== END 2024-06-22 16:28 | disposition home or self-care (01) ==
LOC: HO.HMCH 15:49
PROVIDERS: PCP Internal Medicine; Visit Provider Internal Medicine
DX: J30.9 Allergic rhinitis, unspecified (principal); G47.33 Obstructive sleep apnea (adult) (pediatric); E66.9 Obesity, unspecified; Z68.36 Body mass index [BMI] 36.0-36.9, adult; N52.9 Male erectile dysfunction, unspecified; R41.840 Attention and concentration deficit; F33.9 Major depressive disorder, recurrent, unspecified; Z12.11 Encounter for screening for malignant neoplasm of colon

== ENCOUNTER → 2024-06-22 15:48 | Outpatient (BNVA) | payer OTHER, SELFPAY | PROVIDERS: PCP Internal Medicine; Visit Provider Internal Medicine | DX: G47.33 Obstructive sleep apnea (adult) (pediatric) (principal); J30.9 Allergic rhinitis, unspecified; N52.9 Male erectile dysfunction, unspecified; R41.840 Attention and concentration deficit; F33.9 Major depressive disorder, recurrent, unspecified; E66.9 Obesity, unspecified; Z68.36 Body mass index [BMI] 36.0-36.9, adult | CPT/HCPCS: 96127; 99212 ==

== ENCOUNTER 2024-10-11 14:29 | Outpatient (AMB) | payer OTHER, SELFPAY ==
[2024-10-11 14:31] VITALS: BP 130/80; PULSE 89; TEMP 36.3; O2SAT 97; BMI 37.7
--- NOTE | 2024-10-11 14:31 | MHC.PC.OV ---
Vital Signs 10/11/24 14:31 Height 5 ft 4 in Weight 219 lb 6 oz BMI 37.7 BP 130/80 Blood Pressure Location Lt brachial Position Sitting Pulse 89 Pulse Source Pulse Oximeter Temp 97.3 F Temp Source Temporal Artery Scan Pulse Oximetry (%) 97 Oxygen Delivery Method Room Air Intake Visit Reasons: Follow Up Allergies amoxicillin Allergy (Unknown, Verified 10/11/24 14:57) makes his symptoms worse Sulfa (Sulfonamide Antibiotics) Allergy (Unknown, Verified 10/11/24 14:57) symptoms get worse Medication List - Last Reconciled 10/11/24 by Kieran Anderson MD bisacodyl (Dulcolax (bisacodyl)) 10 mg (2 x 5 mg) PO ONCE 1 day bupropion HCl SR (Wellbutrin SR) 150 mg PO BID CPAP (CPAP Machine/Device) AUTO PAP mode 6-16 setting loratadine (Allergy Relief (loratadine)) 10 mg PO DAILY PRN methylphenidate HCl ER (Concerta) 18 mg PO QAM PRN polyethylene glycol 3350 (Miralax) 238 grams PO ONCE 1 day sildenafil 50 mg PO DAILY PRN Tobacco use date assessed: 10/11/24 Dental Screening Dental Screen Date: 10/11/24 Did you have a dental visit in the last 12 months?: Yes Did you have a dental problem in the last 6 months where you did not have access to dental care?: No Was dental information given to patient?: Patient has dentist HPI Follow Up HPI Details Patient comes in today for his follow up visit States that he feels okay He denies any headaches or dizziness Denies any chest pains, no increased SOB No nausea/vomiting, no abdominal pain No change in bowel habits noted States that he was finally able to get his CPAP device and is now using it regularly every night when he is sleeping Needs his Sildenafil Rx refilled [facility] Medical History Obesity (BMI 30-39.9) Erectile dysfunction Depression Allergic rhinitis Attention deficit disorder (ADD) Surgical History Hx of colonoscopy History of vasectomy Family History Mother Mental health disorder Substance use disorder Father Mental health disorder Substance use disorder Social History Housing: Apartment Alcohol intake: current Patient Tobacco Use Status: Current everyday Tobacco user Tobacco use type: Cigarette Cigarettes Per Day: 20 e-Cigarette/Vaping Use: Never Used Second Hand Smoke Exposure: No service: No Current occupational status: employed Current occupation: [employer] Cognitive needs: No Hearing needs: No Vision needs: Yes Questionnaire PHQ-9 Over the last 2 weeks, how often have you been bothered by any of the following problems? 1. Little interest or pleasure in doing things: several days 2. Feeling down, depressed, or hopeless: several days 3. Trouble falling or staying asleep, or sleeping too much: several days 4. Feeling tired or having little energy: several days 5. Poor appetite or overeating: several days 6. Feeling bad about yourself - or that you are a failure or have let yourself or your family down: not at all 7. Trouble concentrating on things, such as reading the newspaper or watching television: several days 8. Moving or speaking so slowly that other people could have noticed. Or the opposite - being so fidgety or restless that you have been moving around a lot more than usual: not at all 9. Thoughts that you would be better off or of hurting yourself in some way: not at all Total score: 6 Depression Screening Interpretation: Positive Depression Screening Follow-up: Existing condition and In treatment Depression Screening Done: Yes 94811 - PHQ-9 Billing: Yes Source: Developed by Drs. Thuan Weller, Nancy Ellison, Constantin Waggoner and colleagues, with an educational ngozi from [employer]. Thrive Questionnaire Date Thrive assessed: 04/05/24 I am a: Patient What is your living situation today?: I have a steady place to live Within the past 12 months, did the food you bought not last and you didn't have the money to get more?: I choose not to answer this question Within the past 12 months, did you worry whether your food would run out before you got money to buy more?: Never true Do you have trouble paying for medicines?: No Do you have trouble getting transportation to medical appointments?: No Do you have trouble paying your heating and electricity bill?: Yes Do you have trouble taking care of your child, family member or friend?: No Do you have trouble with day-to-day activities such as bathing, preparing meals, shopping, managing finances, etc.?: No Are you currently unemployed and looking for a job?: No Are you interested in more education?: No Please select the resources that you would like help with: None Currently or been in a relationship where the following occur: I choose not to answer THRIVE Score: 1 AUDIT C Alcohol Use Questionnaire (AUDIT-C) 1. How often do you have a drink containing alcohol?: 2-3 times a week 2. How many drinks containing alcohol do you have on a typical day when you are drinking?: 3 or 4 3. How often do you have six or more drinks on one occasion?: Never Total Score: 4 Score Reviewed/Action Taken: Yes DEANNA-7 AMB Questionnaire DEANNA-7 Date DEANNA - 7 assessed: 06/22/24 Feeling nervous, anxious, or on edge: 1 = Several days Not being able to stop or control worryin = Not at all Worrying too much about different things: 0 = Not at all Trouble relaxin = Not at all Being so restless that it is hard to sit still: 0 = Not at all Becoming easily annoyed or irritable: 0 = Not at all Feeling afraid as if something awful might happen: 0 = Not at all Total DEANNA-7 score (0-4 normal; 5-9 mild; 10-14 moderate; 15-21 severe): 1 Source: Developed by Drs. Thuan Weller, Nancy Ellison, Constantin Waggoner and colleagues, with an educational ngozi from [employer]. Review of Systems Const Denies chills, Denies fatigue, Denies fever(s) and Denies headache(s) ENT Denies dysphagia, Denies dizziness, Denies otalgia, Denies headache(s), Denies neck pain, Denies odynophagia and Denies sore throat Card Denies chest pain, Denies palpitations and Denies dyspnea Resp Denies chest congestion, Denies cough and Denies dyspnea GI Denies abdominal pain, Denies constipation, Denies dysphagia, Denies heartburn, Denies diarrhea, Denies nausea, Denies odynophagia and Denies vomiting Denies difficulty urinating, Reports erectile dysfunction, Denies dysuria, Denies nocturia and Denies urinary frequency Musc Reports back pain (over the lower back, on and off) and Denies neck pain Skin/Breast Denies rash Neuro Denies dizziness and Denies headache(s) Endo Denies fatigue and Denies palpitations Mahad/Lymph Denies easy bruising Physical exam (Primary Care) Vital Signs: Last Vital Signs Temp 97.3 F 10/11/24 14:31 Pulse 89 10/11/24 14:31 BP 130/80 10/11/24 14:31 Pulse Ox 97 10/11/24 14:31 Oxygen Delivery Method Room Air 10/11/24 14:31 BMI result Body Mass Index 37.7 Tobacco/Smoking Status: Tobacco use Status Tobacco use date assessed 10/11/24 10/11/24 14:36 Patient Tobacco Use Status Current everyday Tobacco 10/11/24 14:36 Tobacco use type Cigarette 10/11/24 14:36 e-Cigarette/Vaping Use Never Used 10/11/24 14:36 PHQ-9: PHQ-9 Score PHQ-9: Total score 6 10/11/24 15:12 Depression Screening Interpretation: Positive Depression Screening Follow-up: Existing condition and In treatment Thrive Assessment: Date of Thrive Assessment Date Thrive assessed 04/05/24 10/11/24 14:36 Currently or been in a relationship where the following occur: I choose not to answer Const General: no acute distress and alert HENMT Ears: TM's normal bilaterally and EAC's normal Throat: Yes posterior oropharynx normal and Yes tonsils normal (no TP congestion) Neck Neck: Yes supple and No lymphadenopathy Thyroid: Thyroid normal Resp Auscultation: clear to auscultation bilaterally, no rales and no wheezes Cardio Rate: regular rate Rhythm: regular rhythm Heart sounds: no murmurs GI Palpation (GI): Soft to palpation and nontender Auscultation: normal bowel sounds General: Yes no CVA tenderness Back/Spine/Pelvis Back: no CVA tenderness Thoracic/Lumbar Spine: lumbar spinal tenderness Skin Rashes: no rashes Extrem General: Yes no clubbing, cyanosis or edema Coding Level of Care Code Est Pt Level 4 (33056) Diagnoses Obstructive sleep apnea G47.33 Allergic rhinitis, unspecified seasonality, unspecified trigger J30.9 Allergic rhinitis trigger: unspecified Allergic rhinitis seasonality: unspecified Erectile dysfunction, unspecified erectile dysfunction type N52.9 Erectile dysfunction type: unspecified Attention or concentration deficit R41.840 Attention deficit type: attention or concentration deficit Episode of recurrent major depressive disorder, unspecified depression episode severity F33.9 Depression Type: major depressive disorder Major depression recurrence: recurrent Active/Remission status: currently active Major depression episode severity: unspecified Obesity (BMI 30-39.9) E66.9 Additional Codes PHQ-9 - 89597 - PHQ-9 Billing: Yes ([id number]) Assessment & Plan Assessment & Plan (1) Obstructive sleep apnea: Code(s): G47.33 - Obstructive sleep apnea (adult) (pediatric) Category: Medical Plan: Patient tested positive for ROWENA on a home sleep study done back in September 2022 He was referred back to Sleep Medicine at his last visit and he is now using a CPAP device when he is sleeping at night and feels that the CPAP device has helped him a lot finds that he sleeps better at night lately and does not feel as fatigued during the daytime Follow-up with sleep medicine as scheduled (2) Allergic rhinitis: Code(s): J30.9 - Allergic rhinitis, unspecified Category: Medical Qualifiers: Allergic rhinitis trigger: unspecified Allergic rhinitis seasonality: unspecified Qualified Code(s): J30.9 - Allergic rhinitis, unspecified Plan: Continue Loratadine 10 mg QD PRN (3) Erectile dysfunction: Code(s): N52.9 - Male erectile dysfunction, unspecified Category: Medical Qualifiers: Erectile dysfunction type: unspecified Qualified Code(s): N52.9 - Male erectile dysfunction, unspecified Plan: Continue Sildenafil 50 mg PRN - Rx refilled (4) Attention deficit disorder (ADD): Comment: follows up with psychiatry Code(s): F98.8 - Other specified behavioral and emotional disorders with onset usually occurring in childhood and adolescence Category: Medical Qualifiers: Attention deficit type: attention or concentration deficit Qualified Code(s): R41.840 - Attention and concentration deficit Plan: Continue Concerta 18 mg Q AM PRN Follow up with psychiatry as scheduled (5) Depression: Code(s): F32.A - Depression, unspecified Category: Medical Qualifiers: Depression Type: major depressive disorder Major depression recurrence: recurrent Active/Remission status: currently active Major depression episode severity: unspecified Qualified Code(s): F33.9 - Major depressive disorder, recurrent, unspecified Plan: Continue Bupropion SR 150 mg BID Follow up with psychiatry as scheduled (6) Obesity (BMI 30-39.9): Code(s): E66.9 - Obesity, unspecified Category: Medical Plan: Reinforced diet/exercise as tolerated/lose weight Plan To return as scheduled in May 2025 for his next annual physical examination Patient is reminded to try and get his follow-up labs done just before he comes back in May 2025 for his next appointment Orders: Orders TSH reflex Free T4 06/03/25 E78.00 - Pure hypercholesterolemia, unspecified, Z00.00 - Encounter for general adult medical examination without abnormal findings Vitamin D 25-OH Total 06/03/25 E55.9 - Vitamin D deficiency, unspecified, Z00.00 - Encounter for general adult medical examination without abnormal findings Complete Blood Count Auto Diff 06/03/25 D64.9 - Anemia, unspecified, Z00.00 - Encounter for general adult medical examination without abnormal findings Comprehensive Poca. Panel Fast 06/03/25 E78.00 - Pure hypercholesterolemia, unspecified, Z00.00 - Encounter for general adult medical examination without abnormal findings Lipid Panel 06/03/25 E78.00 - Pure hypercholesterolemia, unspecified, Z00.00 - Encounter for general adult medical examination without abnormal findings UA CC w/rflx Micro + Cult 06/03/25 R30.0 - Dysuria, Z00.00 - Encounter for general adult medical examination without abnormal findings Prostate Specific Antigen 06/03/25 N40.0 - Benign prostatic hyperplasia without lower urinary tract symptoms, Z00.00 - Encounter for general adult medical examination without abnormal findings Medications: Refilled sildenafil administer 30 minutes to 4 hours before activity 50 mg PO DAILY PRN 10 tabs 2RF sexual activity
--- OUTSIDE RECORDS SUMMARY | 2024-10-11 15:30 | XMS_ITS | Clinical Summary ---
Author Organization [facility] Address [address] [place] [address] Care Team Providers Care Supervisor [employer] Name Role Phone Unavailable Primary Care Provider [...]
--- OUTSIDE RECORDS SUMMARY | 2024-10-11 15:30 | XMS_ITS | Clinical Summary ---
Author Organization [facility] Address [address] [place] [address] Care Team Providers Care Crabber Name Role Phone Brett Suarez MD Primary [...] 94 08/24/2016 1:46 PM EDT Temperature 36.7 C (98.1 F) 08/24/2016 1:46 PM EDT Respiratory Rate 16 08/24/2016 1:46 PM EDT [...] Vaccine (2023-2 5 season) 2023 Influenza (#1) 2024 HPV Vaccine (No Doses Required) Completed Hep A Aged Out No longer eligi ble based on patient's age to complete this topic Hib Aged Out No longer eligi ble based on patient's age to complete this topic Meningococcal ACWY Aged Out No longer eligible based on patient's age to complete this topic Care Teams Crabber Relationship Specialty Start Date End Date Brett Suarez MD PCP - General 09/22/22 Brett Suarez MD PCP - Backup PCP 03/19/23
== END 2024-10-11 14:58 | disposition home or self-care (01) ==
LOC: HO.HMCH 14:30
PROVIDERS: PCP Internal Medicine; Visit Provider Internal Medicine
DX: J30.9 Allergic rhinitis, unspecified (principal); E66.9 Obesity, unspecified; G47.33 Obstructive sleep apnea (adult) (pediatric); Z68.37 Body mass index [BMI] 37.0-37.9, adult; N52.9 Male erectile dysfunction, unspecified; R41.840 Attention and concentration deficit; F33.9 Major depressive disorder, recurrent, unspecified

== ENCOUNTER → 2024-10-11 14:29 | Outpatient (BNVA) | payer OTHER, SELFPAY | PROVIDERS: PCP Internal Medicine; Visit Provider Internal Medicine | DX: G47.33 Obstructive sleep apnea (adult) (pediatric) (principal); J30.9 Allergic rhinitis, unspecified; N52.9 Male erectile dysfunction, unspecified; R41.840 Attention and concentration deficit; F33.9 Major depressive disorder, recurrent, unspecified; N40.0 Benign prostatic hyperplasia without lower urinary tract symptoms; R30.0 Dysuria; E78.00 Pure hypercholesterolemia, unspecified; E66.9 Obesity, unspecified; Z68.37 Body mass index [BMI] 37.0-37.9, adult | CPT/HCPCS: 96127; 99212 ==

== ENCOUNTER 2024-11-14 10:16 | Outpatient (AMB) | payer OTHER, SELFPAY ==
--- NOTE | 2024-11-14 10:17 | MHC.OFFVIS ---
Vital Signs 11/14/24 10:18 Height 5 ft 4 in Weight 220 lb BMI 37.8 BP 140/82 H Blood Pressure Location Rt brachial Position Sitting Pulse 84 Pulse Source Pulse Oximeter Pulse Oximetry (%) 97 Oxygen Delivery Method Room Air Intake Visit Reasons: colo screening Intake Note: New/Returning pt for rescreening prior to initial colo. Screened by [facility] but never had procedure. CC; Pt denies any GI sx or concerns. Pt states that the procedure was cancelled last time because he never got the medication Rx'd to him. Tree Shear Operator Required: No Accompanied by: Self / Same As Patient Allergies amoxicillin Allergy (Unknown, Verified 11/14/24 10:17) makes his symptoms worse Sulfa (Sulfonamide Antibiotics) Allergy (Unknown, Verified 11/14/24 10:17) symptoms get worse HPI HPI colo screening: Details: 54 year old? male with past medical history of obesity, allergic reminded us, ADD, ROWENA, depression is here today for pre colonoscopy screening.? Patient was sent to us by his PCP.? This is his first colonoscopy screening.? Patient was seen in the office in 2021 for same, however patient reports that he never received the prep and was unable to go for colonoscopy. Patient denies any gastrointestinal symptoms in the past or at present.? Denies any personal or family history of gastrointestinal disease, colon polyps, or CRC.? Denies history of difficulty with sedation or anesthesia in the past.? History of sleep apnea.? Denies any history of cardiac, renal, pulmonary, or hepatic disease.?? No history of infectious? diseases like hepatitis A, B, C, HIV or tuberculosis.? Patient is not on any anticoagulation [facility] Medical History Obesity (BMI 30-39.9) Erectile dysfunction Depression Allergic rhinitis Attention deficit disorder (ADD) Surgical History Hx of colonoscopy History of vasectomy Family History Mother Mental health disorder Substance use disorder Father Mental health disorder Substance use disorder Social History Housing: Apartment Alcohol intake: current Patient Tobacco Use Status: Current everyday Tobacco user Tobacco use type: Cigarette Cigarettes Per Day: 20 e-Cigarette/Vaping Use: Never Used Second Hand Smoke Exposure: No service: No Current occupational status: employed Current occupation: [employer] Cognitive needs: No Hearing needs: No Vision needs: Yes Physical Exam Vital Signs: Last Vital Signs Pulse 84 11/14/24 10:18 BP 140/82 H 11/14/24 10:18 Pulse Ox 97 11/14/24 10:18 Oxygen Delivery Method Room Air 11/14/24 10:18 BMI result Body Mass Index 37.8 Assessment & Plan Assessment & Plan (1) Colon cancer screening: Code(s): Z12.11 - Encounter for screening for malignant neoplasm of colon Category: Medical (2) Encounter for screening colonoscopy: Code(s): Z12.11 - Encounter for screening for malignant neoplasm of colon Category: Medical Plan Patient denies any GI, cardiac or respiratory symptoms.? Denies any issues with anesthesia in the past.? History of sleep apnea.? No history infectious diseases in the past or present.? Not on any anticoagulation therapy.? No family or personal history of colon cancer or polyps.? Patient denies melena, hematochezia, unintentional weight loss or ribbon like stools.? Discussed at length the pre-procedure,? prep, diet & medications as well as what to expect prior, during and after the procedure.?? Stressed the importance of good bowel prep.? Recommended the use of Vaseline or Calmoseptine OTC & baby wipes with bowel movements to promote comfort.? ?Patient verbalizes understanding and agrees to plan of care.? He was given the opportunity to ask questions and all questions answered.? We will see him after the procedure.? Orders: Referrals GI Procedure Notification Z12.11 - Encounter for screening for malignant neoplasm of colon Medications: New bisacodyl (Dulcolax (bisacodyl)) take 4 tabs at noon the day before your colonoscopy 20 mg (4 x 5 mg) PO ONCE 4 tabs 0RF constipation 1 day Z12.11 - Encounter for screening for malignant neoplasm of colon polyethylene glycol 3350 (Miralax) As directed by gastroenterology department at [facility] 238 grams PO ONCE 238 grams 0RF Z12.11 - Encounter for screening for malignant neoplasm of colon Coding Level of Care Code New Pt Level 3 (60165) Diagnoses Colon cancer screening Z12.11 Encounter for screening colonoscopy Z12.11 Time Spent (min) 40 Comment 30 minutes spent with patient and additional 10 minutes spent reviewing his records
[2024-11-14 10:18] VITALS: BP 140/82; PULSE 84; O2SAT 97; BMI 37.8
--- OUTSIDE RECORDS SUMMARY | 2024-11-14 11:25 | XMS_ITS | Clinical Summary ---
Author Organization [facility] Address [address] [place] [address] Care Team Providers Care Commercial Lines Assistant Name Role Phone Unavailable Primary Care Provider [...] 10/08/2019 COVID-19 Vaccine (1 - 2023- season) 2024
--- OUTSIDE RECORDS SUMMARY | 2024-11-14 11:25 | XMS_ITS | Clinical Summary ---
Author Organization [facility] Address [address] [place] [address] Care Team Providers Care Assistant Professor Name Role Phone Brett Suarez MD Primary [...] 2) 10/08/2019 COVID-19 Vaccine (2023-2 5 season) 2024 Influenza (#1) 2024 HPV Vaccine (No Doses Required) Completed Hep A Aged Out No longer eligi ble based on patient's age to complete this topic Hib Aged Out No longer eligi ble based on patient's age to complete this topic Meningococcal ACWY Aged Out No longer eligible based on patient's age to complete this topic Care Teams Assistant Professor Relationship Specialty Start Date End Date Brett Suarez MD PCP - General 09/22/22 Brett Suarez MD PCP - Backup PCP 03/19/23
== END 2024-11-14 10:42 | disposition home or self-care (01) ==
PROVIDERS: PCP Internal Medicine; Visit Provider Nurse Practitioner Family
DX: Z01.818 Encounter for other preprocedural examination (principal); Z12.11 Encounter for screening for malignant neoplasm of colon
CPT/HCPCS: 99203

== ENCOUNTER → 2024-11-14 10:16 | Outpatient (BNVA) | payer OTHER, SELFPAY | PROVIDERS: PCP Internal Medicine; Visit Provider Nurse Practitioner Family | DX: Z01.818 Encounter for other preprocedural examination (principal) | CPT/HCPCS: 99202 ==

== ENCOUNTER 2024-12-26 11:22 | Outpatient (AMB) | payer OTHER, SELFPAY ==
[2024-12-26 11:45] VITALS: BP 140/82; PULSE 82; TEMP 36.3; O2SAT 96; BMI 38.3
--- NOTE | 2024-12-26 11:45 | MHC.PC.OV ---
Vital Signs 12/26/24 11:45 Height 5 ft 4 in Weight 223 lb 6 oz BMI 38.3 BP 140/82 H Blood Pressure Location Lt brachial Position Sitting Pulse 82 Pulse Source Pulse Oximeter Temp 97.3 F Temp Source Temporal Artery Scan Pulse Oximetry (%) 96 Oxygen Delivery Method Room Air Intake Visit Reasons: tic bite Allergies amoxicillin Allergy (Unknown, Verified 12/26/24 11:48) makes his symptoms worse Sulfa (Sulfonamide Antibiotics) Allergy (Unknown, Verified 12/26/24 11:48) symptoms get worse Medication List - Last Reconciled 12/26/24 by Sky Urban MD bisacodyl (Dulcolax (bisacodyl)) 20 mg (4 x 5 mg) PO ONCE 1 day bupropion HCl SR (Wellbutrin SR) 150 mg PO BID CPAP (CPAP Machine/Device) AUTO PAP mode 6-16 setting loratadine (Allergy Relief (loratadine)) 10 mg PO DAILY PRN methylphenidate HCl ER (Concerta) 18 mg PO QAM PRN polyethylene glycol 3350 (Miralax) 238 grams PO ONCE sildenafil 50 mg PO DAILY PRN Tobacco use date assessed: 12/26/24 Dental Screening Dental Screen Date: 12/26/24 Did you have a dental visit in the last 12 months?: Yes Did you have a dental problem in the last 6 months where you did not have access to dental care?: No Was dental information given to patient?: Patient has dentist HPI HPI Comments History of Present Illness Details The patient is a 54-year-old male presenting for evaluation of a tick bite on his abdomen and chest that occurred three or four weeks ago. The patient saw the tick attached after walking in the [place], and he notes there may have been multiple bites. He is currently experiencing a stiff neck, flu-like symptoms, weakness, and a slight headache. The patient's current medications include Wellbutrin and Concerta. He is not currently taking loratadine and is unsure about sildenafil. [facility] Medical History Obesity (BMI 30-39.9) Erectile dysfunction Depression Allergic rhinitis Attention deficit disorder (ADD) Surgical History Hx of colonoscopy History of vasectomy Family History Mother Mental health disorder Substance use disorder Father Mental health disorder Substance use disorder Social History Housing: Apartment Alcohol intake: current Patient Tobacco Use Status: Current everyday Tobacco user Tobacco use type: Cigarette Cigarettes Per Day: 20 e-Cigarette/Vaping Use: Never Used Second Hand Smoke Exposure: No service: No Current occupational status: employed Current occupation: [employer] Cognitive needs: No Hearing needs: No Vision needs: Yes Questionnaire PHQ-9 Over the last 2 weeks, how often have you been bothered by any of the following problems? 1. Little interest or pleasure in doing things: several days 2. Feeling down, depressed, or hopeless: several days 3. Trouble falling or staying asleep, or sleeping too much: several days 4. Feeling tired or having little energy: several days 5. Poor appetite or overeating: several days 6. Feeling bad about yourself - or that you are a failure or have let yourself or your family down: not at all 7. Trouble concentrating on things, such as reading the newspaper or watching television: several days 8. Moving or speaking so slowly that other people could have noticed. Or the opposite - being so fidgety or restless that you have been moving around a lot more than usual: not at all 9. Thoughts that you would be better off or of hurting yourself in some way: not at all Total score: 6 Depression Screening Interpretation: Positive Depression Screening Follow-up: Existing condition and In treatment Depression Screening Done: Yes Source: Developed by Drs. Thuan Weller, Nancy Ellison, Constantin Waggoner and colleagues, with an educational ngozi from [employer]. Thrive Questionnaire Date Thrive assessed: 04/05/24 I am a: Patient What is your living situation today?: I have a steady place to live Within the past 12 months, did the food you bought not last and you didn't have the money to get more?: I choose not to answer this question Within the past 12 months, did you worry whether your food would run out before you got money to buy more?: Never true Do you have trouble paying for medicines?: No Do you have trouble getting transportation to medical appointments?: No Do you have trouble paying your heating and electricity bill?: Yes Do you have trouble taking care of your child, family member or friend?: No Do you have trouble with day-to-day activities such as bathing, preparing meals, shopping, managing finances, etc.?: No Are you currently unemployed and looking for a job?: No Are you interested in more education?: No Please select the resources that you would like help with: None Currently or been in a relationship where the following occur: I choose not to answer THRIVE Score: 1 AUDIT C Alcohol Use Questionnaire (AUDIT-C) 1. How often do you have a drink containing alcohol?: 2-3 times a week 2. How many drinks containing alcohol do you have on a typical day when you are drinking?: 3 or 4 3. How often do you have six or more drinks on one occasion?: Never Total Score: 4 DEANNA-7 AMB Questionnaire DEANNA-7 Date DEANNA - 7 assessed: 06/22/24 Feeling nervous, anxious, or on edge: 1 = Several days Not being able to stop or control worryin = Not at all Worrying too much about different things: 0 = Not at all Trouble relaxin = Not at all Being so restless that it is hard to sit still: 0 = Not at all Becoming easily annoyed or irritable: 0 = Not at all Feeling afraid as if something awful might happen: 0 = Not at all Total DEANNA-7 score (0-4 normal; 5-9 mild; 10-14 moderate; 15-21 severe): 1 Source: Developed by Drs. Thuan Weller, Nancy Ellison, Constantin Waggoner and colleagues, with an educational ngozi from [employer]. Review of Systems Const Details: As per HPI. Physical exam (Primary Care) Vital Signs: Last Vital Signs Temp 97.3 F 12/26/24 11:45 Pulse 82 12/26/24 11:45 BP 140/82 H 12/26/24 11:45 Pulse Ox 96 12/26/24 11:45 Oxygen Delivery Method Room Air 12/26/24 11:45 BMI result Body Mass Index 38.3 Tobacco/Smoking Status: Tobacco use Status Tobacco use date assessed 12/26/24 12/26/24 11:49 Patient Tobacco Use Status Current everyday Tobacco 12/26/24 11:49 Tobacco use type Cigarette 12/26/24 11:49 e-Cigarette/Vaping Use Never Used 12/26/24 11:49 PHQ-9: PHQ-9 Score PHQ-9: Total score 6 12/26/24 11:49 Depression Screening Interpretation: Positive Depression Screening Follow-up: Existing condition and In treatment Thrive Assessment: Date of Thrive Assessment Date Thrive assessed 04/05/24 12/26/24 11:49 Currently or been in a relationship where the following occur: I choose not to answer Const Other: Pertinent findings are in BOLD GENERAL APPEARANCE NAD, activity normal for age, well developed/ well nourished, no cyanosis, pallor, or diaphoresis. No neck stiffness of PE. EYES lids/conjunctiva normal. EARS/NOSE/THROAT Mucous membranes moist, nares normal, lips/teeth normal uvula midline without oral pharyngeal erythema, exudate or swelling TMs normal bilaterally. No lymphangitis/lymphedema. HEAD/NECK normocephalic atraumatic, no facial trauma, neck is supple. RESPIRATORY respiratory effort normal, speaks in full sentences, no tripod position, no accessory muscle use. Lungs clear to auscultation without rhonchi, wheezes, rales CARDIAC Regular rate and rhythm, no edema. ABDOMINAL Soft, ND/NT. No evidence of fluid wave. No pulsatile masses on exam, rebound tenderness, Gonzalez sign or pain over Mcburney's point. MUSCLES/EXTREMITIES No abnormal range of motion, no swelling. SKIN Warm, pink and dry. No rashes, dermatoses, petechiae or lesions. Lesions of tick bite sites on abdomen and chest. NEUROLOGICAL Speech is clear and appropriate. Normal level of consciousness. Gait and coordination are normal. 5/5 strength in all extremities. PSYCH Normal mood and affect. Judgement/competence is appropriate Coding Level of Care Code Est Pt Level 3 (72310) Diagnoses Tick bite of abdominal wall, initial encounter S30.861A; W57.XXXA Encounter type: initial encounter Site of tick bite: abdominal wall Time Spent (min) 20 Assessment & Plan Assessment & Plan (1) Tick bite: Code(s): W57.XXXA - Bitten or stung by nonvenomous insect and other nonvenomous arthropods, initial encounter Category: Medical Qualifiers: Encounter type: initial encounter Site of tick bite: abdominal wall Qualified Code(s): S30.861A - Insect bite (nonvenomous) of abdominal wall, initial encounter; W57.XXXA - Bitten or stung by nonvenomous insect and other nonvenomous arthropods, initial encounter Plan: - The patient presents with symptoms concerning for a tick-borne illness, including a stiff neck and flu-like symptoms, following a known tick bite three to four weeks ago. - Blood work will be ordered to investigate. Ehrilichichia Anaplasma Lyme IgM/ IgG Malaria babesia smear Babesia IgG/IgM - A course of Doxycycline 100 mg twice daily for two weeks will be started empirically. - The patient has been advised to return to the emergency department for severe headache, severe neck stiffness, photophobia, or seizures. - A follow-up visit is scheduled in two weeks after completion of the antibiotic course to ensure symptom resolution. Plan I have discussed the plan with the patient, which includes ordering blood work and starting a course of Doxycycline 100 mg twice daily for two weeks due to suspicion of a tick-borne illness. I advised him to monitor For any new symptoms such as a rash, joint pain, fever, or chills. I provided strict return precautions, instructing him to go to the emergency department for severe headache, severe neck stiffness, light sensitivity, or seizures. A follow-up visit is scheduled in two weeks to assess his condition after he completes the antibiotic treatment. Orders: Orders Lyme IgG/IgM w/reflex to WB Today W57.XXXA - Bitten or stung by nonvenomous insect and other nonvenomous arthropods, initial encounter Malaria Babesia Smear Today W57.XXXA - Bitten or stung by nonvenomous insect and other nonvenomous arthropods, initial encounter Ehrlichia Anaplasma Ab Panel Today W57.XXXA - Bitten or stung by nonvenomous insect and other nonvenomous arthropods, initial encounter Babesia IgG/IgM Today W57.XXXA - Bitten or stung by nonvenomous insect and other nonvenomous arthropods, initial encounter Medications: New doxycycline hyclate 100 mg PO BID 28 tabs 0RF
--- OUTSIDE RECORDS SUMMARY | 2024-12-26 13:43 | XMS_ITS | Clinical Summary ---
Author Organization [facility] Address [address] [place] [address] Care Team Providers Care Phone Representative Name Role Phone Unavailable Primary Care [...] of 2) 10/08/2019 COVID-19 Vaccine (1 - season) 2024 RSV Vaccine 50 years and old er and Patients (1 - 1-dose 75+ series) 2044
--- OUTSIDE RECORDS SUMMARY | 2024-12-26 13:43 | XMS_ITS | Clinical Summary ---
Author Organization [facility] Address [address] [place] [address] Care Team Providers Care Trouble Locater Name Role Phone Brett Suarez MD Primary [...] (Shingrix) (1 of 2) 10/08/2019 COVID-19 Vaccine ( - 2024-2 6 season) 2024 Influenza (#1) 2024 RSV (1 - 1-dose 75+ series) 2044 HPV Vaccine (No Doses Required) Completed Hep A Aged Out No longer eligi ble based on patient's age to complete this topic Hib Aged Out No longer eligi ble based on patient's age to complete this topic Meningococcal ACWY Aged Out No longer eligible based on patient's age to complete this topic Care Teams Trouble Locater Relationship Specialty Start Date End Date Brett Suarez MD PCP - General 09/22/22 Brett Suarez MD PCP - Backup PCP 03/19/23
== END 2024-12-26 12:08 | disposition home or self-care (01) ==
LOC: HO.HMCH 11:23
PROVIDERS: Visit Provider Internal Medicine
DX: S30.861A Insect bite (nonvenomous) of abdominal wall, initial encounter (principal); W57.XXXA Bitten or stung by nonvenomous insect and other nonvenomous arthropods, initial encounter

== ENCOUNTER → 2024-12-26 11:22 | Outpatient (BNVA) | payer OTHER, SELFPAY | PROVIDERS: Visit Provider Internal Medicine | DX: S30.861A Insect bite (nonvenomous) of abdominal wall, initial encounter (principal); W57.XXXA Bitten or stung by nonvenomous insect and other nonvenomous arthropods, initial encounter | CPT/HCPCS: 99212 ==

== ENCOUNTER 2024-12-27 10:10 | Outpatient (REF) | payer OTHER, SELFPAY ==
--- OUTSIDE RECORDS SUMMARY | 2024-12-27 11:44 | XMS_ITS | Clinical Summary ---
Author Organization [facility] Address [address] [place] [address] Care Team Providers Care Resistor Inspector Name Role Phone Unavailable Primary Care Provider [...]
--- OUTSIDE RECORDS SUMMARY | 2024-12-27 11:44 | XMS_ITS | Clinical Summary ---
Author Organization [facility] Address [address] [place] [address] Care Team Providers Care Business Law Teacher Name Role Phone Brett Suarez MD Primary [...] age to complete this topic Care Teams Business Law Teacher Relationship Specialty Start Date End Date Brett Suarez MD PCP - General 09/22/22 Brett Suarez MD PCP - Backup PCP 03/19/23
[2024-12-28 09:23] LABS: Lyme Abs Screen <0.90 index
[2025-01-04 10:44] LABS: A. Phagocytophilum Ab IgG <1:64 (<1:64); A. Phagocytophilum Ab IgM <1:20 (<1:20)
== END 2024-12-27 10:11 | disposition home or self-care (01) ==
LOC: HO.LAB 10:10
PROVIDERS: PCP Internal Medicine; Visit Provider Internal Medicine
DX: Z01.84 Encounter for antibody response examination (principal); W57.XXXA Bitten or stung by nonvenomous insect and other nonvenomous arthropods, initial encounter
CPT/HCPCS: 36415; 86617; 86618; 86666; 86753; 87207

== ENCOUNTER 2025-01-25 13:32 | Outpatient (AMB) | payer OTHER, SELFPAY ==
--- NOTE | 2025-01-25 13:41 | MHC.PC.OV ---
Vital Signs 01/25/25 13:42 Height 5 ft 4 in Weight 224 lb BMI 38.4 BP 154/88 H Blood Pressure Location Lt brachial Position Sitting Pulse 78 Pulse Source Pulse Oximeter Pulse Oximetry (%) 98 Oxygen Delivery Method Room Air Intake Visit Reasons: left hand weakness and Knot in back. Wet Pour Mixer Required: No Accompanied by: Self / Same As Patient Allergies amoxicillin Allergy (Unknown, Verified 01/25/25 14:15) makes his symptoms worse Sulfa (Sulfonamide Antibiotics) Allergy (Unknown, Verified 01/25/25 14:15) symptoms get worse Medication List - Last Reconciled 01/25/25 by Charleen Moreno MD bisacodyl (Dulcolax (bisacodyl)) 20 mg (4 x 5 mg) PO ONCE 1 day bupropion HCl SR (Wellbutrin SR) 150 mg PO BID CPAP (CPAP Machine/Device) AUTO PAP mode 6-16 setting loratadine (Allergy Relief (loratadine)) 10 mg PO DAILY PRN methylphenidate HCl ER (Concerta) 18 mg PO QAM polyethylene glycol 3350 (Miralax) 238 grams PO ONCE sildenafil 50 mg PO DAILY PRN Tobacco use date assessed: 12/26/24 Dental Screening Dental Screen Date: 12/26/24 HPI HPI Comments History of Present Illness Details The patient is a 54-year-old male presenting with weakness in his left hand. 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 He also found he lacked the strength to twist a cap on a soda bottle with his left hand and had to use his right. Associated with this, he reports a sensation like a knot in his chest and back on the same side, which is irritating when he walks. He also feels a slight numbness in his fingertips, more so on the left side. He denies pain in the shoulder, leg swelling, or shortness of breath. The patient's past medical history includes allergies and Attention Deficit Disorder. His medications include bupropion 150 mg twice daily, loratadine as needed, sildenafil as needed, and Concerta 18 mg, though he notes inconsistent adherence with Concerta. He reports an allergy to sulfa, which worsens his symptoms. He smokes about a pack of cigarettes per day and drinks beer a few times a week. He uses a CPAP machine. [facility] Medical History (Updated 01/25/25 @ 14:32 by Charleen Moreno MD) ROWENA (obstructive sleep apnea) Back pain Obesity (BMI 30-39.9) Erectile dysfunction Depression Allergic rhinitis Attention deficit disorder (ADD) Surgical History Hx of colonoscopy History of vasectomy Family History Mother Mental health disorder Substance use disorder Father Mental health disorder Substance use disorder Social History (Updated 01/25/25 @ 14:21 by Charleen Moreno MD) Housing: Apartment Alcohol intake: current Alcohol intake frequency: a few times a week Alcohol type: beer Patient Tobacco Use Status: Current everyday Tobacco user Tobacco use type: Cigarette Cigarettes Per Day: 20 e-Cigarette/Vaping Use: Never Used Second Hand Smoke Exposure: Yes service: No Current occupational status: employed Current occupation: [employer] Cognitive needs: No Hearing needs: No Vision needs: Yes Questionnaire Thrive Questionnaire Date Thrive assessed: 04/05/24 I am a: Patient What is your living situation today?: I have a steady place to live Within the past 12 months, did the food you bought not last and you didn't have the money to get more?: I choose not to answer this question Within the past 12 months, did you worry whether your food would run out before you got money to buy more?: Never true Do you have trouble paying for medicines?: No Do you have trouble getting transportation to medical appointments?: No Do you have trouble paying your heating and electricity bill?: Yes Do you have trouble taking care of your child, family member or friend?: No Do you have trouble with day-to-day activities such as bathing, preparing meals, shopping, managing finances, etc.?: No Are you currently unemployed and looking for a job?: No Are you interested in more education?: No Please select the resources that you would like help with: None Currently or been in a relationship where the following occur: I choose not to answer THRIVE Score: 1 DEANNA-7 AMB Questionnaire DEANNA-7 Date DEANNA - 7 assessed: 05/07/25 Source: Developed by Drs. Thuan Weller, Nancy Ellison, Constantin Waggoner and colleagues, with an educational ngozi from [employer]. Review of Systems Const All systems reviewed & are unremarkable except as noted in HPI and below Card Denies chest pain at rest, Denies chest pain with activity, Denies edema, Denies irregular heart rhythm, Denies claudication, Denies orthopnea, Denies paroxysmal nocturnal dyspnea and Denies slow heart rate Physical exam (Primary Care) Vital Signs: Last Vital Signs Pulse 78 01/25/25 13:42 BP 154/88 H 01/25/25 13:42 Pulse Ox 98 01/25/25 13:42 Oxygen Delivery Method Room Air 01/25/25 13:42 BMI result Body Mass Index 38.4 BMI Assessment/Plan discussion: High BMI High, discussed plan: lifestyle, weight reduction, dietary and physical activity Tobacco/Smoking Status: Tobacco use Status Tobacco use date assessed 12/26/24 01/25/25 13:42 Patient Tobacco Use Status Current everyday Tobacco 01/25/25 14:21 Tobacco use type Cigarette 01/25/25 14:21 e-Cigarette/Vaping Use Never Used 01/25/25 14:21 Thrive Assessment: Date of Thrive Assessment Date Thrive assessed 04/05/24 01/25/25 13:42 Currently or been in a relationship where the following occur: I choose not to answer Resp Effort & Inspection: normal respiratory effort Auscultation: clear to auscultation bilaterally Cardio Jugular venous distension: no JVD Rate: regular rate Rhythm: regular rhythm Heart sounds: S1 normal heart sound present and S2 normal heart sound present Extrem General: Yes full ROM Coding Level of Care Code Est Pt Level 3 (96733) Diagnoses Elevated blood pressure reading without diagnosis of hypertension R03.0 Left hand paresthesia R20.2 Time Spent (min) 19 Assessment & Plan Assessment & Plan (1) Elevated blood pressure reading without diagnosis of hypertension: Code(s): R03.0 - Elevated blood-pressure reading, without diagnosis of hypertension Category: Medical (2) Left hand paresthesia: Code(s): R20.2 - Paresthesia of skin Category: Medical Plan Plan 1. Elevated Blood Pressure Reading The patient's blood pressure was elevated today, which may be related to pain, his use of Concerta, and caffeine intake. The plan is to recheck the blood pressure in a few weeks to assess for persistence. He has the option to monitor his blood pressure at a pharmacy and convert the follow-up to a telehealth visit. 2. Muscle Weakness (Of Left Hand) The patient presents with left hand weakness and numbness in the fingertips, which is affecting his ability to play guitar and perform daily tasks like opening a bottle. The differential diagnosis includes arthritis and nerve damage. Carpal tunnel syndrome is less likely as symptoms are in the fingertips rather than the typical three-finger distribution. To investigate further, X-rays and a nerve conduction study will be ordered to check for arthritis and nerve damage. 3. Chest Discomfort The patient reports a knot-like sensation in his chest and back that occurs with exertion, such as walking. Given the exertional nature and location of the discomfort, a cardiac etiology must be ruled out. An EKG will be ordered, which can be done at the hospital at his convenience. 4. Attention-Deficit Hyperactivity Disorder, Predominantly Inattentive Type The patient is prescribed Concerta 18 mg for ADD, which is the lowest available dose, but has been taking it inconsistently. He was advised to take Concerta in the morning, as taking it in the evening can cause insomnia. It was also suggested to space out the medication from his coffee intake to mitigate effects on blood pressure. Orders: Orders ECG 12 lead EKG Today R07.89 - Other chest pain XR hand LT 2V Today R20.2 - Paresthesia of skin NE nerve conduction velocity Today R20.2 - Paresthesia of skin NE electromyogram (EMG) Today R20.2 - Paresthesia of skin
[2025-01-25 13:42] VITALS: BP 154/88; PULSE 78; O2SAT 98; BMI 38.4
--- OUTSIDE RECORDS SUMMARY | 2025-01-25 20:56 | XMS_ITS | Clinical Summary ---
Author Organization [facility] Address [address] [place] [address] Care Team Providers Care Production Worker Name Role Phone Brett Suarez MD Primary [...] age to complete this topic Care Teams Production Worker Relationship Specialty Start Date End Date Brett Suarez MD PCP - General 09/22/22 Brett Suarez MD PCP - Backup PCP 03/19/23
--- OUTSIDE RECORDS SUMMARY | 2025-01-25 20:56 | XMS_ITS | Clinical Summary ---
Author Organization [facility] Address [address] [place] [address] Care Team Providers Care Data Integrity Consultant Name Role Phone Unavailable Primary Care Provider [...]
== END 2025-01-25 14:32 | disposition home or self-care (01) ==
LOC: HO.HMCH 13:34
PROVIDERS: PCP Internal Medicine; Visit Provider Internal Medicine
DX: R03.0 Elevated blood-pressure reading, without diagnosis of hypertension (principal); R20.2 Paresthesia of skin

== ENCOUNTER → 2025-01-25 13:32 | Outpatient (BNVA) | payer OTHER, SELFPAY | PROVIDERS: PCP Internal Medicine; Visit Provider Internal Medicine | DX: R20.0 Anesthesia of skin (principal); M62.81 Muscle weakness (generalized); R03.0 Elevated blood-pressure reading, without diagnosis of hypertension; R07.89 Other chest pain; F90.9 Attention-deficit hyperactivity disorder, unspecified type | CPT/HCPCS: 99212 ==

== ENCOUNTER 2025-01-26 11:36 | Outpatient (REF) | payer OTHER, SELFPAY ==
--- NOTE | ~2025-01-26 | XR_ITS ---
EXAMINATION: XR HAND 3 OR MORE VIEWS LEFT HISTORY: R20.2 - Paresthesia of skin COMPARISON: There are no prior studies available for comparison. FINDINGS: Three views of the left hand are submitted. Osseous mineralization is normal. There is no fracture or dislocation. There is mild narrowing of the 5th MCP joint. The remaining joint spaces are maintained. The soft tissues are unremarkable. XR/XR hand LT min 3V IMPRESSION: Mild narrowing of the 5th MCP joint. Electronically signed by: Thuan Salmon MD 01/26/2025 12:05 PM MARGARITA
--- NOTE | 2025-01-26 11:41 | ECG_ITS ---
Test Reason : CHEST PAIN Blood Pressure : */* mmHG Vent. Rate : 71 BPM Atrial Rate : 71 BPM P-R Int : 158 ms QRS Dur : 106 ms QT Int : 374 ms P-R-T Axes : 61 19 48 degrees QTcB Int : 406 ms Normal sinus rhythm Minimal voltage criteria for LVH, may be normal variant ( Sokolow-Waite ) Borderline ECG No previous ECGs available Referred By: Charleen Moreno Electronically Signed By: ALYSE ALBA MD
--- OUTSIDE RECORDS SUMMARY | 2025-01-26 18:12 | XMS_ITS | Clinical Summary ---
Author Organization [facility] Address [address] [place] [address] Care Team Providers Care Linoleum Layer Helper Name Role Phone Unavailable Primary Care Provider [...]
--- OUTSIDE RECORDS SUMMARY | 2025-01-26 18:12 | XMS_ITS | Clinical Summary ---
Author Organization [facility] Address [address] [place] [address] Care Team Providers Care Epic Kaleidoscope Analyst Name Role Phone Brett Suarez MD Primary [...] age to complete this topic Care Teams Epic Kaleidoscope Analyst Relationship Specialty Start Date End Date Brett Suarez MD PCP - General 09/22/22 Brett Suarez MD PCP - Backup PCP 03/19/23
== END 2025-01-26 11:37 | disposition home or self-care (01) ==
LOC: HO.XRAY 11:36
PROVIDERS: Absent Provider Internal Medicine; PCP Internal Medicine; Visit Provider Internal Medicine
DX: R07.89 Other chest pain (principal); R20.2 Paresthesia of skin
CPT/HCPCS: 73130; 93005

== ENCOUNTER → 2025-01-26 11:41 | Outpatient (BNV) | payer OTHER, SELFPAY | PROVIDERS: Absent Provider Internal Medicine; PCP Internal Medicine; Visit Provider Internal Medicine Cardiovascular Disease | DX: R07.89 Other chest pain (principal) | CPT/HCPCS: 93010 ==

== ENCOUNTER → 2025-01-26 11:49 | Outpatient (BNV) | payer OTHER, SELFPAY | PROVIDERS: Absent Provider Internal Medicine; PCP Internal Medicine; Visit Provider Radiology Diagnostic Radiology | DX: R20.2 Paresthesia of skin (principal) | CPT/HCPCS: 73130 ==